=== PATIENT | female | born 1940 | race Caucasian/White ===

== ENCOUNTER → 2016-11-26 | Outpatient (CLI) | payer MEDICARE ==
[2016-11-26 13:06] LABS: HEMATOCRIT 45.2 % (34.6-47.8); HEMOGLOBIN 14.6 g/dL (11.7-16.4); WHITE BLOOD COUNT 10.1 x10^3/uL (3.4-10)
[2016-11-26 13:42] LABS: ASPARTATE AMINO TRANSFERASE 18 U/L (15-37); BLOOD UREA NITROGEN 15 mg/dL (7-18)
== END | disposition home or self-care (01) ==
LOC: LAB 10:03
PROVIDERS: ATTEND Internal Medicine Cardiovascular Disease
DX: E78.2 Mixed hyperlipidemia (principal); I48.0 Paroxysmal atrial fibrillation
CPT/HCPCS: 36415; 80053; 80061; 84436; 84443; 84481; 85025

== ENCOUNTER → 2016-12-04 | Outpatient (CLI) | payer MEDICARE | END | disposition home or self-care (01) | LOC: CFH 10:12 | PROVIDERS: ATTEND Internal Medicine Cardiovascular Disease | DX: I51.7 Cardiomegaly (principal); E78.2 Mixed hyperlipidemia; I48.0 Paroxysmal atrial fibrillation; I10 Essential (primary) hypertension; Z95.2 Presence of prosthetic heart valve | CPT/HCPCS: 71020; 93306 ==

== ENCOUNTER → 2017-03-24 | Outpatient (CLI) | payer MEDICARE ==
[2017-03-24 13:19] LABS: HEMATOCRIT 40.7 % (34.6-47.8); HEMOGLOBIN 13.6 g/dL (11.7-16.4); WHITE BLOOD COUNT 12.6 x10^3/uL (3.4-10)
[2017-03-24 14:08] LABS: BLOOD UREA NITROGEN 13 mg/dL (7-18)
[2017-03-24 14:19] LABS: ASPARTATE AMINO TRANSFERASE 17 U/L (15-37)
== END | disposition home or self-care (01) ==
LOC: CFH 11:36
PROVIDERS: ATTEND Internal Medicine Cardiovascular Disease
DX: I10 Essential (primary) hypertension (principal); I25.10 Atherosclerotic heart disease of native coronary artery without angina pectoris; E78.2 Mixed hyperlipidemia; I48.0 Paroxysmal atrial fibrillation; I35.9 Nonrheumatic aortic valve disorder, unspecified; Z95.2 Presence of prosthetic heart valve
CPT/HCPCS: 36415; 71020; 80053; 80061; 84436; 84443; 84481; 85025

== ENCOUNTER 2018-02-23 17:01 | Inpatient (IN) | payer MEDICARE ==
[~2018-02-23] VITALS: Ht 160 cm; Wt 67.9 kg
[2018-02-23] VITALS (9 sets, daily range): BP systolic 106–166; BP diastolic 37–71
[2018-02-23] MEDS ORDERED: SODIUM CHLORIDE 0.9% 1,000ML IVBOLUS ONE (17:30)
[2018-02-23] MEDS ORDERED: SODIUM CHLORIDE FLUSH 10ML SYR IVF ONE (17:30)
[2018-02-23] MEDS ORDERED: PANTOPRAZOLE 80 MG in SODIUM CHLORIDE 0.9% 50 ML IVPB ONE (17:47)
[2018-02-23] MEDS: PANTOPRAZOLE 80 MG in SODIUM CHLORIDE 0.9% 100 ML IV SCH ×4 (18:17→23:38)
[2018-02-23 18:27] LABS: INTERNATIONAL NORMALIZED RATIO 1.09 (0.93-1.1); PROTHROMBIN TIME 11.3 Seconds (9.6-11.5)
[2018-02-23 18:35] LABS: TROPONIN I < 0.015 ng/mL (0.000-0.045)
[2018-02-23] MEDS ORDERED: APIX5TAB PO (19:26)
[2018-02-23] MEDS ORDERED: PRED20TA PO (19:26)
[2018-02-23] MEDS ORDERED: SODIUM CHLORIDE 0.9% 1,000 ML IV SCH (19:38)
[2018-02-23] MEDS ORDERED: ONDANSETRON 2MG/ML, 2ML IVPush PRN (20:00)
[2018-02-23] MEDS ORDERED: POLYETHYLENE GLYCOL 17 GM PACKET PO PRN (20:00)
[2018-02-23] MEDS: PREDNISONE MC SCH (20:30)
[2018-02-23] MEDS: ALBUTEROL SULFATE 2.5 MG/3 ML HHN SCH (20:30)
[2018-02-23] MEDS: BUDESONIDE 0.5 MG/2 ML INHA NPPB SCH (20:30)
[2018-02-23] MEDS ORDERED: ALBUTEROL SULFATE 2.5 MG/3 ML NPPB PRN (21:00)
[2018-02-23] MEDS ORDERED: BUDESONIDE 0.5 MG/2 ML INHA NPPB SCH (21:00)
[2018-02-24 01:45] VITALS: BP 112/62
[2018-02-24 01:54] VITALS: BP 122/69
[2018-02-24] MEDS: ALBUTEROL SULFATE 2.5 MG/3 ML HHN SCH ×2 (02:30→10:07)
[2018-02-24] MEDS ORDERED: PRED10TA PO (04:04)
[2018-02-24] MEDS ORDERED: PRED5TAB PO (04:04)
[2018-02-24] MEDS: PREDNISONE MC SCH ×3 (04:30→20:30)
[2018-02-24 05:40] LABS: BASOPHILS # (AUTO) 0.03 x10^3/uL (0-0.1); BASOPHILS % (AUTO) 0 % (0-1); EOSINOPHILS # (AUTO) 0.02 x10^3/uL (0-0.4); EOSINOPHILS % (AUTO) 0 % (1-7); LYMPHOCYTES # (AUTO) 1.09 x10^3/uL (1-3.4); LYMPHOCYTES % (AUTO) 9 % (22-44); MD NO; MEAN CORPUSCULAR HEMOGLOBIN 30.5 pg (27.0-34.8); MEAN CORPUSCULAR HGB CONC 32.9 g/dL (32.4-35.8); MEAN CORPUSCULAR VOLUME 92.8 fL (80-100); MEAN PLATELET VOLUME 7.5 fL (7.4-10.4); MONOCYTES # (AUTO) 0.86 x10^3/uL (0.2-0.8); MONOCYTES % (AUTO) 7 % (2-9); NEUTROPHILS % (AUTO) 83 % (42-75); PLATELET COUNT 282 x10^3/uL (130-400); RED BLOOD COUNT 2.78 x10^6/uL (3.82-5.3); RED CELL DISTRIBUTION WIDTH 16.5 % (9.6-15.2)
[2018-02-24 05:48] LABS: ANION GAP 11 mmol/L (5-15); CALCIUM 7.7 mg/dL (8.5-10.1); CHLORIDE 103 mmol/L (98-107); CREATININE 1.24 mg/dL (0.55-1.02)
[2018-02-24] MEDS ORDERED: ALBUTEROL SULFATE 2.5 MG/3 ML NPPB SCH (07:00)
[2018-02-24 08:00] VITALS: BP 130/72
[2018-02-24] MEDS ORDERED: POTASSIUM CHLORIDE 40 MEQ in SODIUM CHLORIDE 0.9% 500 ML IV ONE (08:00)
[2018-02-24] MEDS: BUDESONIDE 0.5 MG/2 ML INHA NPPB SCH ×2 (08:30→20:30)
[2018-02-24] MEDS: PANTOPRAZOLE 80 MG in SODIUM CHLORIDE 0.9% 100 ML IV SCH ×2 (10:40→21:22)
[2018-02-24] MEDS ORDERED: MIDAZOLAM 1 MG/ML, 2ML ONE (13:50)
[2018-02-24] MEDS ORDERED: FENTANYL PF 100 MCG/2ML ONE (13:50)
[2018-02-24 14:00] VITALS: BP 164/69
[2018-02-24] MEDS ORDERED: IPRATROPIUM 0.5 MG/2.5 ML INHA ONE (17:28)
[2018-02-24] MEDS ORDERED: ALBUTEROL SULFATE 2.5 MG/3 ML HHN PRN (18:00)
[2018-02-24] MEDS: IPRATROPIUM 0.5 MG/2.5 ML INHA HHN SCH (18:00)
[2018-02-24 19:36] VITALS: BP 142/69
[2018-02-25 03:09] VITALS: BP_SYST 115; BP_SYST 137; BP_DIAS 62; BP_DIAS 74
[2018-02-25] MEDS: PREDNISONE MC SCH ×3 (04:30→20:30)
[2018-02-25 05:28] LABS: ALBUMIN 2.6 g/dL (3.4-5.0); ANION GAP 6 mmol/L (5-15); CALCIUM 7.7 mg/dL (8.5-10.1); CHLORIDE 106 mmol/L (98-107); CREATININE 1.04 mg/dL (0.55-1.02)
[2018-02-25 05:44] LABS: MEAN CORPUSCULAR HEMOGLOBIN 30.2 pg (27.0-34.8); MEAN CORPUSCULAR HGB CONC 32.5 g/dL (32.4-35.8); MEAN CORPUSCULAR VOLUME 92.8 fL (80-100); MEAN PLATELET VOLUME 7.8 fL (7.4-10.4); PLATELET COUNT 248 x10^3/uL (130-400); RED BLOOD COUNT 2.44 x10^6/uL (3.82-5.3); RED CELL DISTRIBUTION WIDTH 16.6 % (9.6-15.2)
[2018-02-25] MEDS: IPRATROPIUM 0.5 MG/2.5 ML INHA HHN SCH ×4 (06:00→20:15)
[2018-02-25 06:31] LABS: BASOPHILS # (AUTO) 0.01 x10^3/uL (0-0.1); BASOPHILS % (AUTO) 0 % (0-1); EOSINOPHILS # (AUTO) 0.03 x10^3/uL (0-0.4); EOSINOPHILS % (AUTO) 0 % (1-7); LYMPHOCYTES # (AUTO) 0.61 x10^3/uL (1-3.4); LYMPHOCYTES % (AUTO) 5 % (22-44); MD SCAN; MONOCYTES # (AUTO) 0.73 x10^3/uL (0.2-0.8); MONOCYTES % (AUTO) 6 % (2-9); NEUTROPHILS % (AUTO) 88 % (42-75)
[2018-02-25] MEDS: BUDESONIDE 0.5 MG/2 ML INHA NPPB SCH ×2 (07:15→20:15)
[2018-02-25] MEDS: PANTOPRAZOLE 80 MG in SODIUM CHLORIDE 0.9% 100 ML IV SCH (07:15)
[2018-02-25 07:39] VITALS: BP 134/65
[2018-02-25] MEDS: PANTOPROZOLE 40MG TABLET PO SCH ×2 (08:08→21:11)
[2018-02-25] MEDS: AMIODARONE 200 MG TABLET PO SCH (10:43)
[2018-02-25 11:31] LABS: CHOL/HDL RATIO 2.6; LDL/HDL RATIO 1.1 (0.5-3.0)
[2018-02-25 12:54] VITALS: BP 130/55
[2018-02-25] MEDS: MOVIPREP POWDER 1 PREP KIT PO SCH (18:04)
[2018-02-25 19:57] VITALS: BP 175/68
[2018-02-26] MEDS: IPRATROPIUM 0.5 MG/2.5 ML INHA HHN SCH ×3 (01:38→11:40)
[2018-02-26] MEDS: MOVIPREP POWDER 1 PREP KIT PO SCH (02:31)
[2018-02-26 02:33] VITALS: BP 167/71
[2018-02-26] MEDS: PREDNISONE MC SCH ×3 (04:30→20:22)
[2018-02-26 07:28] VITALS: BP 152/71
[2018-02-26] MEDS ORDERED: PROPOFOL 10 MG/ML, 20ML ONE (08:36)
[2018-02-26] MEDS ORDERED: MEPERIDINE/PF 25MG/0.5ML IVPush PRN (10:00)
[2018-02-26] MEDS: BUDESONIDE 0.5 MG/2 ML INHA NPPB SCH (10:00)
[2018-02-26] MEDS ORDERED: ONDANSETRON 2MG/ML, 2ML IVPush PRN (10:00)
[2018-02-26] MEDS ORDERED: OXYcodone 5 MG/5 ML ORAL.SOL UDC PO PRN (10:00)
[2018-02-26] MEDS ORDERED: HYDROmorphone 1 MG/ML, 1ML IV PRN (10:00)
[2018-02-26] MEDS ORDERED: LABETALOL 5MG/ML, 20ML IV PRN (10:00)
[2018-02-26] MEDS ORDERED: FENTANYL PF 100 MCG/2ML IV PRN (10:00)
[2018-02-26] MEDS ORDERED: MIDAZOLAM 1 MG/ML, 2ML IV PRN (10:00)
[2018-02-26] MEDS: AMIODARONE 200 MG TABLET PO SCH (10:16)
[2018-02-26] MEDS: PANTOPROZOLE 40MG TABLET PO SCH (10:16)
[2018-02-26] MEDS ORDERED: AMIO100T4 PO (11:51)
[2018-02-26] MEDS ORDERED: amlodipine PO (11:56)
[2018-02-26] MEDS ORDERED: LEVO50TA PO (11:56)
[2018-02-26] MEDS ORDERED: OMEP-110 PO (11:56)
[2018-02-26] MEDS ORDERED: ATOR40TA78 PO (11:56)
[2018-02-26] MEDS ORDERED: TORS20TA2 PO (11:56)
[2018-02-26] MEDS: TORSEMIDE 20 MG TABLET PO SCH (12:08)
[2018-02-26] MEDS: ACETAMINOPHEN 325 MG TABLET PO PRN (12:08)
[2018-02-26] MEDS: AMLODIPINE 5 MG TABLET PO SCH ×2 (12:08→20:21)
[2018-02-26] MEDS ORDERED: FUROSEMIDE 20 MG/2 ML IV ONE (13:30)
[2018-02-26 14:12] VITALS: BP 149/73
[2018-02-26 19:08] VITALS: BP 135/66
[2018-02-26] MEDS: ALBUTEROL SULFATE 2.5 MG/3 ML NPPB SCH (20:15)
[2018-02-26] MEDS: ATORVASTATIN 40 MG TABLET PO SCH (20:20)
[2018-02-27 00:28] VITALS: BP 105/63
[2018-02-27 05:11] LABS: BASOPHILS # (AUTO) 0.01 x10^3/uL (0-0.1); BASOPHILS % (AUTO) 0 % (0-1); EOSINOPHILS # (AUTO) 0.01 x10^3/uL (0-0.4); EOSINOPHILS % (AUTO) 0 % (1-7); LYMPHOCYTES # (AUTO) 0.88 x10^3/uL (1-3.4); LYMPHOCYTES % (AUTO) 9 % (22-44); MD NO; MEAN CORPUSCULAR HEMOGLOBIN 29.9 pg (27.0-34.8); MEAN CORPUSCULAR HGB CONC 32.4 g/dL (32.4-35.8); MEAN CORPUSCULAR VOLUME 92.2 fL (80-100); MEAN PLATELET VOLUME 7.6 fL (7.4-10.4); MONOCYTES # (AUTO) 0.68 x10^3/uL (0.2-0.8); MONOCYTES % (AUTO) 7 % (2-9); NEUTROPHILS # (AUTO) 8.73 x10^3/uL (1.8-6.8); NEUTROPHILS % (AUTO) 85 % (42-75); PLATELET COUNT 254 x10^3/uL (130-400); RED BLOOD COUNT 2.56 x10^6/uL (3.82-5.3); RED CELL DISTRIBUTION WIDTH 16.4 % (9.6-15.2)
[2018-02-27 05:19] LABS: ANION GAP 7 mmol/L (5-15); CALCIUM 7.9 mg/dL (8.5-10.1); CHLORIDE 102 mmol/L (98-107); CREATININE 1.21 mg/dL (0.55-1.02)
[2018-02-27] MEDS: OMEPRAZOLE 20 MG CAPSULE.DR PO SCH (05:58)
[2018-02-27] MEDS: LEVOTHYROXINE 50 MCG TABLET PO SCH (05:58)
[2018-02-27] MEDS: ACETAMINOPHEN 325 MG TABLET PO PRN ×2 (06:07→21:20)
[2018-02-27] MEDS: PREDNISONE MC SCH (07:37)
[2018-02-27 07:38] VITALS: BP 103/60
[2018-02-27] MEDS: TORSEMIDE 20 MG TABLET PO SCH ×2 (08:00→10:09)
[2018-02-27] MEDS: AMIODARONE 200 MG TABLET PO SCH (08:00)
[2018-02-27] MEDS: AMLODIPINE 5 MG TABLET PO SCH ×2 (08:00→21:20)
[2018-02-27] MEDS: ALBUTEROL SULFATE 2.5 MG/3 ML NPPB SCH ×2 (09:00→20:40)
[2018-02-27] MEDS ORDERED: OMNIPAQUE 350 MG/ML, 100ML BOTTLE ONE (10:42)
[2018-02-27] MEDS ORDERED: FERROUS GLUCONATE 324 MG TABLET PO SCH (12:00)
[2018-02-27 13:30] VITALS: BP 144/68
[2018-02-27] MEDS ORDERED: POTASSIUM CHLORIDE 10 MEQ TABLET.ER PO SCH (15:30)
[2018-02-27] MEDS: GUAIFENESIN 200 MG TABLET PO SCH ×2 (16:12→21:20)
[2018-02-27] MEDS: IRON SUCROSE COMPLEX 100MG/5ML IV SCH (17:51)
[2018-02-27 18:47] VITALS: BP 152/61
[2018-02-27] MEDS: DOXYCYCLINE 100MG TABLET PO SCH (21:20)
[2018-02-27] MEDS: ATORVASTATIN 40 MG TABLET PO SCH (21:20)
[2018-02-28 01:17] VITALS: BP 122/68
[2018-02-28] MEDS: LEVOTHYROXINE 50 MCG TABLET PO SCH (05:28)
[2018-02-28] MEDS: OMEPRAZOLE 20 MG CAPSULE.DR PO SCH (05:28)
[2018-02-28] MEDS: GUAIFENESIN 200 MG TABLET PO SCH ×2 (05:28→12:09)
[2018-02-28 05:40] LABS: BASOPHILS # (AUTO) 0.01 x10^3/uL (0-0.1); BASOPHILS % (AUTO) 0 % (0-1); EOSINOPHILS # (AUTO) 0.11 x10^3/uL (0-0.4); EOSINOPHILS % (AUTO) 1 % (1-7); LYMPHOCYTES # (AUTO) 1.06 x10^3/uL (1-3.4); LYMPHOCYTES % (AUTO) 12 % (22-44); MD NO; MEAN CORPUSCULAR HEMOGLOBIN 30.4 pg (27.0-34.8); MEAN CORPUSCULAR VOLUME 92.1 fL (80-100); MEAN PLATELET VOLUME 7.7 fL (7.4-10.4); MONOCYTES # (AUTO) 0.83 x10^3/uL (0.2-0.8); MONOCYTES % (AUTO) 9 % (2-9); NEUTROPHILS # (AUTO) 7.21 x10^3/uL (1.8-6.8); NEUTROPHILS % (AUTO) 78 % (42-75); PLATELET COUNT 279 x10^3/uL (130-400); RED BLOOD COUNT 2.69 x10^6/uL (3.82-5.3); RED CELL DISTRIBUTION WIDTH 16.4 % (9.6-15.2)
[2018-02-28 05:46] LABS: ANION GAP 8 mmol/L (5-15); CALCIUM 7.9 mg/dL (8.5-10.1); CHLORIDE 97 mmol/L (98-107)
[2018-02-28 05:48] LABS: CREATININE 1.43 mg/dL (0.55-1.02)
[2018-02-28 07:20] VITALS: BP 130/65
[2018-02-28] MEDS ORDERED: POTASSIUM CHLORIDE 10 MEQ TABLET.ER PO SCH (08:00)
[2018-02-28] MEDS ORDERED: POTASSIUM CHLORIDE 20 MEQ TAB.ER.PRT PO SCH (08:00)
[2018-02-28] MEDS ORDERED: BUDESONIDE 0.5 MG/2 ML INHA INH SCH (09:00)
[2018-02-28] MEDS ORDERED: ALBUTEROL SULFATE 2.5 MG/3 ML NPPB SCH (09:00)
[2018-02-28] MEDS: DOXYCYCLINE 100MG TABLET PO SCH (09:01)
[2018-02-28] MEDS: TORSEMIDE 20 MG TABLET PO SCH (09:01)
[2018-02-28] MEDS: AMLODIPINE 5 MG TABLET PO SCH (09:02)
[2018-02-28] MEDS: IRON SUCROSE COMPLEX 100MG/5ML IV SCH (09:02)
[2018-02-28] MEDS: AMIODARONE 200 MG TABLET PO SCH (09:02)
[2018-02-28] MEDS ORDERED: POTA20TA6 PO (09:51)
[2018-02-28] MEDS ORDERED: GUAI200T3 PO (09:51)
[2018-02-28] MEDS ORDERED: DOXY100T10 PO (09:51)
[2018-02-28] MEDS ORDERED: OMEP-110 PO (09:51)
[2018-02-28] MEDS ORDERED: AMIO200T42 PO (09:51)
[2018-03-01] MEDS ORDERED: AMIODARONE 200 MG TABLET PO SCH (09:00)
== END 2018-02-28 12:15 | disposition home or self-care (01) | DRG 380 ==
LOC: ED 18:22 → EDIP 19:20 → SUATTDRO 19:37 → 4WST 20:16
PROVIDERS: ADMIT Hospitalist; ATTEND Hospitalist
PROC: 30233N1 Transfusion of Nonautologous Red Blood Cells into Peripheral Vein, Percutaneous Approach (ICD-10-PCS; principal; 2018-02-23)
PROC: 0DJ08ZZ Inspection of Upper Intestinal Tract, Via Natural or Artificial Opening Endoscopic (ICD-10-PCS; 2018-02-24)
PROC: 0DBL8ZX Excision of Transverse Colon, Via Natural or Artificial Opening Endoscopic, Diagnostic (ICD-10-PCS; 2018-02-26)
DX: K22.11 Ulcer of esophagus with bleeding (principal); I50.33 Acute on chronic diastolic (congestive) heart failure; D62 Acute posthemorrhagic anemia; J96.11 Chronic respiratory failure with hypoxia; I13.0 Hypertensive heart and chronic kidney disease with heart failure and stage 1 through stage 4 chronic kidney disease, or unspecified chronic kidney disease; K44.9 Diaphragmatic hernia without obstruction or gangrene; K64.1 Second degree hemorrhoids; K63.5 Polyp of colon; E03.9 Hypothyroidism, unspecified; E78.5 Hyperlipidemia, unspecified; K57.90 Diverticulosis of intestine, part unspecified, without perforation or abscess without bleeding; E87.6 Hypokalemia; F17.210 Nicotine dependence, cigarettes, uncomplicated; I27.20 Pulmonary hypertension, unspecified; Z99.81 Dependence on supplemental oxygen; I35.0 Nonrheumatic aortic (valve) stenosis; I34.0 Nonrheumatic mitral (valve) insufficiency; I44.7 Left bundle-branch block, unspecified; I48.0 Paroxysmal atrial fibrillation; J44.9 Chronic obstructive pulmonary disease, unspecified; K21.0 Gastro-esophageal reflux disease with esophagitis; N18.3 Chronic kidney disease, stage 3 (moderate); Z79.01 Long term (current) use of anticoagulants; Z79.52 Long term (current) use of systemic steroids; Z90.710 Acquired absence of both cervix and uterus; Z95.1 Presence of aortocoronary bypass graft; Z95.2 Presence of prosthetic heart valve
CPT/HCPCS: 0399T; 36415; 36430; 71045; 71275; 80048; 80061; 82040; 82728; 83540; 83550; 83735; 84100; 84466; 84484; 85014; 85018; 85025; 85610; 85730; 86850; 86900; 86923; 88305; 93005; 93306; 94640; 96374; 99285; G0378; J1756; J2250; J2704; J3010; J3480; J7613; J7626; J7644; Q9967; A4648; C9113; J1940; J7030; J7040; J7512; P9016

== ENCOUNTER → 2018-02-23 | Outpatient (CLI) | payer MEDICARE ==
[~2018-02-23] MED LIST: AMIO100T4 PO; AMIO200T42 PO; APIX5TAB PO; ATOR40TA78 PO; DOXY100T10 PO; GUAI200T3 PO; LEVO50TA PO; OMEP-110 PO; POTA20TA6 PO; PRED10TA PO; PRED20TA PO; PRED5TAB PO; TORS20TA2 PO; amlodipine PO
[2018-02-23 16:00] LABS: BASOPHILS % (AUTO) 0 % (0-1); EOSINOPHILS # (AUTO) 0.03 x10^3/uL (0-0.4); EOSINOPHILS % (AUTO) 0 % (1-7); LYMPHOCYTES # (AUTO) 0.38 x10^3/uL (1-3.4); LYMPHOCYTES % (AUTO) 4 % (22-44); MEAN CORPUSCULAR HEMOGLOBIN 29.1 pg (27.0-34.8); MEAN CORPUSCULAR HGB CONC 31.7 g/dL (32.4-35.8); MEAN CORPUSCULAR VOLUME 91.8 fL (80-100); MEAN PLATELET VOLUME 7.8 fL (7.4-10.4); MONOCYTES # (AUTO) 0.23 x10^3/uL (0.2-0.8); MONOCYTES % (AUTO) 2 % (2-9); NEUTROPHILS # (AUTO) 8.93 x10^3/uL (1.8-6.8); NEUTROPHILS % (AUTO) 93 % (42-75); PLATELET COUNT 354 x10^3/uL (130-400); RED BLOOD COUNT 2.07 x10^6/uL (3.82-5.3); RED CELL DISTRIBUTION WIDTH 15.7 % (9.6-15.2)
[2018-02-23 16:01] LABS: ANION GAP 9 mmol/L (5-15); CALCIUM 8.1 mg/dL (8.5-10.1); CHLORIDE 103 mmol/L (98-107)
[2018-02-23 16:12] LABS: ALANINE AMINOTRANSFERASE 19 U/L (12-78); ALKALINE PHOSPHATASE 68 U/L (45-117); BILIRUBIN,TOTAL 0.2 mg/dL (0.2-1.0); CREATININE 1.57 mg/dL (0.55-1.02); T4 (THYROXINE) 11.1 mcg/dL (4.8-13.9); TOTAL PROTEIN 5.9 g/dL (6.4-8.2)
[2018-02-23 16:17] LABS: MD MORPH REVIEW ONLY
[2018-02-23 16:19] LABS: HYPOCHROMIA 1+; MICROCYTOSIS 1+; POLYCHROMASIA 1+
[2018-02-23 16:20] LABS: <PLATELET ESTIMATE> ADEQUATE; <PLT MORPHOLOGY> NORMAL PLT MORPH
== END | disposition home or self-care (01) ==
LOC: CFH 15:10
PROVIDERS: ATTEND Internal Medicine Cardiovascular Disease
DX: I48.0 Paroxysmal atrial fibrillation (principal)
CPT/HCPCS: 36415; 80053; 84436; 84443; 84481; 85025

== ENCOUNTER → 2018-07-14 | Outpatient (CLI) | payer MEDICARE ==
[2018-07-14 12:57] LABS: MEAN CORPUSCULAR HEMOGLOBIN 28.7 pg (27.0-34.8); MEAN CORPUSCULAR HGB CONC 31.7 g/dL (32.4-35.8); MEAN CORPUSCULAR VOLUME 90.4 fL (80-100); MEAN PLATELET VOLUME 8.2 fL (7.4-10.4); PLATELET COUNT 265 x10^3/uL (130-400); RED BLOOD COUNT 4.31 x10^6/uL (3.82-5.3); RED CELL DISTRIBUTION WIDTH 17.8 % (9.6-15.2)
[2018-07-14 13:15] LABS: CALCIUM 8.7 mg/dL (8.5-10.1); CHLORIDE 105 mmol/L (98-107)
[2018-07-14 13:21] LABS: ALANINE AMINOTRANSFERASE 21 U/L (12-78); ALBUMIN 3.6 g/dL (3.4-5.0); ALKALINE PHOSPHATASE 104 U/L (45-117); ANION GAP 6 mmol/L (5-15); BILIRUBIN,TOTAL 0.8 mg/dL (0.2-1.0); CHOLESTEROL, TOTAL 224 mg/dL (140-239); CREATININE 1.14 mg/dL (0.55-1.02); HDL CHOLESTEROL (DIRECT) 108 mg/dL (40-60); TOTAL PROTEIN 6.7 g/dL (6.4-8.2); TRIGLYCERIDES 142 mg/dL (50-200); VLDL CHOLESTEROL 28 mg/dL (0-25)
[2018-07-14 13:22] LABS: CHOL/HDL RATIO 2.1; HDL CHOL % 48 % (28-40); LDL CHOLESTEROL,CALCULATED 88 mg/dL (54-169); LDL/HDL RATIO 0.8 (0.5-3.0)
[2018-07-14 14:07] LABS: BASOPHILS % (AUTO) 0 % (0-1); EOSINOPHILS # (AUTO) 0.04 x10^3/uL (0-0.4); EOSINOPHILS % (AUTO) 0 % (1-7); LYMPHOCYTES % (AUTO) 4 % (22-44); MD SCAN; MONOCYTES # (AUTO) 0.16 x10^3/uL (0.2-0.8); MONOCYTES % (AUTO) 1 % (2-9); NEUTROPHILS # (AUTO) 12.06 x10^3/uL (1.8-6.8); NEUTROPHILS % (AUTO) 95 % (42-75)
== END | disposition home or self-care (01) ==
LOC: CFH 08:17
PROVIDERS: ATTEND Internal Medicine Cardiovascular Disease
DX: I08.1 Rheumatic disorders of both mitral and tricuspid valves (principal); I13.0 Hypertensive heart and chronic kidney disease with heart failure and stage 1 through stage 4 chronic kidney disease, or unspecified chronic kidney disease; I50.9 Heart failure, unspecified; N18.9 Chronic kidney disease, unspecified; I48.0 Paroxysmal atrial fibrillation; E78.2 Mixed hyperlipidemia; J44.9 Chronic obstructive pulmonary disease, unspecified; Z87.891 Personal history of nicotine dependence
CPT/HCPCS: 36415; 80053; 80061; 85025; 93306

== ENCOUNTER → 2018-10-20 | Outpatient (CLI) | payer MEDICARE | END | disposition home or self-care (01) | LOC: CFH 11:47 | PROVIDERS: ATTEND Internal Medicine Cardiovascular Disease | DX: I12.9 Hypertensive chronic kidney disease with stage 1 through stage 4 chronic kidney disease, or unspecified chronic kidney disease (principal); N18.9 Chronic kidney disease, unspecified; I48.0 Paroxysmal atrial fibrillation; I35.9 Nonrheumatic aortic valve disorder, unspecified; I25.10 Atherosclerotic heart disease of native coronary artery without angina pectoris; E78.2 Mixed hyperlipidemia; J98.4 Other disorders of lung | CPT/HCPCS: 71046 ==

== ENCOUNTER 2019-07-19 15:44 | Inpatient (IN) | payer MEDICARE ==
[~2019-07-19] VITALS: Ht 160 cm; Wt 78.8 kg
[2019-07-19] MEDS ORDERED: SODIUM CHLORIDE FLUSH 10ML SYR IVF ONE (16:30)
[2019-07-19] MEDS ORDERED: methylPREDNISolone SOD SUCC 125 MG/2 ML IV ONE (16:30)
[2019-07-19 16:57] LABS: MEAN CORPUSCULAR HEMOGLOBIN 28.2 pg (27.0-34.8); MEAN CORPUSCULAR HGB CONC 31.4 g/dL (32.4-35.8); MEAN CORPUSCULAR VOLUME 89.9 fL (80-100); MEAN PLATELET VOLUME 7.2 fL (7.4-10.4); PLATELET COUNT 450 x10^3/uL (130-400); RED BLOOD COUNT 2.91 x10^6/uL (3.82-5.3); RED CELL DISTRIBUTION WIDTH 17.3 % (9.6-15.2)
--- NOTE | 2019-07-19 17:05 | NUR ---
PT UPRIGHT ON GURNEY AWAKE & MORE COMFORTABLE, RESPONDS APPROP TO STAFF, IMPROVED WOB/NAD AT REST WITH SUPPL O2 IN PLACE, COMFORT MEASURES PROIVDED, CALL LIGHT WITHIN REACH.
[2019-07-19 17:06] LABS: ALBUMIN 3.2 g/dL (3.4-5.0); ANION GAP 7 mmol/L (5-15); CALCIUM 8.4 mg/dL (8.5-10.1); CHLORIDE 103 mmol/L (98-107); CREATININE 1.63 mg/dL (0.55-1.02)
[2019-07-19 17:24] LABS: MD YES
[2019-07-19 17:26] LABS: LYMPHS% (MANUAL) 2 % (22-44); MONOS#(MANUAL) 0.45 x10^3/uL (0.3-2.7); MONOS% (MANUAL) 3 % (2-9); SEG#(MANUAL) 14.25 x10^3/uL (1.8-6.8); SEGS% (MANUAL) 95 % (42-75)
[2019-07-19 17:29] LABS: <PLATELET ESTIMATE> INCREASED; HYPOCHROMIA 1+; MICROCYTOSIS 1+; POLYCHROMASIA 1+; SMALL PLATELETS 1+
[2019-07-19] MEDS ORDERED: SODIUM CHLORIDE FLUSH 10ML SYR IVF PRN (18:00)
[2019-07-19] MEDS ORDERED: FUROSEMIDE 40 MG/4 ML IV ONE (18:30)
[2019-07-19] MEDS ORDERED: POLYETHYLENE GLYCOL 17 GM PACKET PO PRN (19:00)
[2019-07-19] MEDS ORDERED: ONDANSETRON ODT 4 MG PO PRN (19:00)
[2019-07-19] MEDS ORDERED: BISACODYL 10 MG SUPP PR PRN (19:00)
--- NOTE | 2019-07-19 19:03 | NUR ---
REPORT GIVEN TO ZOE
[2019-07-19] MEDS ORDERED: HEPARIN 5,000 UNITS/ML, 1ML ONE (19:23)
[2019-07-19] MEDS ORDERED: OMEPRAZOLE 20 MG CAPSULE.DR ONE (19:23)
[2019-07-19] MEDS ORDERED: methylPREDNISolone SOD SUCC 125 MG/2 ML ONE (19:23)
--- NOTE | 2019-07-19 19:34 | NUR ---
Patient states she feels better than when she arrived however she is still having difficulty breathing. Patient is on 2lpm O2 via NC. She uses home O2 at the same but 3lpm when walking.
[2019-07-19] MEDS ORDERED: FUROSEMIDE 40 MG/4 ML ONE (20:10)
[2019-07-19] MEDS: methylPREDNISolone SOD SUCC 125 MG/2 ML IVPush SCH (20:17)
[2019-07-19] MEDS: ATORVASTATIN 40 MG TABLET PO SCH (20:21)
[2019-07-19] MEDS: OMEPRAZOLE 20 MG CAPSULE.DR PO SCH (20:21)
[2019-07-19] MEDS: GUAIFENESIN 200 MG TABLET PO SCH (20:21)
[2019-07-19] MEDS: AMLODIPINE 5 MG TABLET PO SCH (20:22)
[2019-07-19] MEDS: HEPARIN 5,000 UNITS/ML, 1ML SQ SCH (20:24)
--- NOTE | 2019-07-19 20:45 | NUR ---
Patient continued to have increased work of breathing. Contacted physician for orders. RT to evaluate and start optiflow
[2019-07-19] MEDS: SODIUM CHLORIDE FLUSH 10ML SYR IVF SCH (21:00)
--- NOTE | 2019-07-19 21:02 | NUR ---
Ana Maria card in [facility] - 07/19/19 at 2125 by [email or web address] Please call patient's sister Michelle [phone]
[2019-07-19] MEDS ORDERED: ALBUTEROL/IPRATROPIUM 2.5MG/0.5MG, 3 ML NPPB PRN (22:00)
--- NOTE | 2019-07-19 22:21 | NUR ---
After optiflow, patient work of breathing decreased. Patient states she can breath much better.
[2019-07-20 00:16] LABS: MICROSCOPIC NOT IND
[2019-07-20 00:20] LABS: CULTURE INDICATED? NO
[2019-07-20] MEDS: methylPREDNISolone SOD SUCC 125 MG/2 ML IVPush SCH ×4 (01:30→19:00)
[2019-07-20] MEDS: ALBUTEROL/IPRATROPIUM 2.5MG/0.5MG, 3 ML NPPB SCH ×3 (03:00→15:00)
[2019-07-20] MEDS ORDERED: methylPREDNISolone SOD SUCC 125 MG/2 ML ONE ×2 (03:33→03:51)
[2019-07-20] MEDS ORDERED: ALBUTEROL/IPRATROPIUM 2.5MG/0.5MG, 3 ML ONE ×4 (03:34→21:25)
[2019-07-20] MEDS ORDERED: HEPARIN 5,000 UNITS/ML, 1ML ONE ×3 (03:53→21:25)
[2019-07-20] MEDS: HEPARIN 5,000 UNITS/ML, 1ML SQ SCH ×3 (04:19→21:45)
[2019-07-20 04:54] LABS: ANION GAP 7 mmol/L (5-15); CALCIUM 8.7 mg/dL (8.5-10.1); CHLORIDE 98 mmol/L (98-107); MEAN CORPUSCULAR HEMOGLOBIN 28.6 pg (27.0-34.8); MEAN CORPUSCULAR HGB CONC 32.1 g/dL (32.4-35.8); MEAN CORPUSCULAR VOLUME 89.2 fL (80-100); MEAN PLATELET VOLUME 7.3 fL (7.4-10.4); PLATELET COUNT 388 x10^3/uL (130-400); RED BLOOD COUNT 2.96 x10^6/uL (3.82-5.3); RED CELL DISTRIBUTION WIDTH 17.1 % (9.6-15.2)
[2019-07-20 04:56] LABS: CREATININE 1.45 mg/dL (0.55-1.02)
[2019-07-20 05:44] LABS: BASOPHILS % (AUTO) 0 % (0-1); EOSINOPHILS # (AUTO) 0.08 x10^3/uL (0-0.4); EOSINOPHILS % (AUTO) 1 % (1-7); LYMPHOCYTES # (AUTO) 0.37 x10^3/uL (1-3.4); LYMPHOCYTES % (AUTO) 4 % (22-44); MD SCAN; MONOCYTES # (AUTO) 0.01 x10^3/uL (0.2-0.8); MONOCYTES % (AUTO) 0 % (2-9); NEUTROPHILS # (AUTO) 8.66 x10^3/uL (1.8-6.8); NEUTROPHILS % (AUTO) 95 % (42-75)
[2019-07-20] MEDS: LEVOTHYROXINE 50 MCG TABLET PO SCH (05:53)
[2019-07-20] MEDS: GUAIFENESIN 200 MG TABLET PO SCH ×4 (05:53→21:45)
[2019-07-20] MEDS ORDERED: FUROSEMIDE 20 MG/2 ML IV SCH (07:30)
[2019-07-20] MEDS ORDERED: POTASSIUM CHLORIDE 20 MEQ TAB.ER.PRT ONE (08:02)
[2019-07-20] MEDS ORDERED: FUROSEMIDE 20 MG/2 ML ONE (08:02)
[2019-07-20] MEDS: POTASSIUM CHLORIDE 20 MEQ TAB.ER.PRT PO SCH (08:14)
--- NOTE | 2019-07-20 08:25 | NUR ---
pt resting in gurney, NAD, eyes open, conversing iwth RN, denies additional needs, call light within reach, medicated per hospitalist order, see MAR for details, waiting for admit bed. WCTM.
[2019-07-20] MEDS ORDERED: NEOSPORIN OINT. PKT 1 PACKET ONE ×2 (08:42→09:32)
[2019-07-20] MEDS ORDERED: DOCUSATE 100 MG CAPSULE ONE (08:53)
[2019-07-20] MEDS ORDERED: BUDESONIDE 0.5 MG/2 ML INHA NPPB SCH (09:00)
[2019-07-20] MEDS: SODIUM CHLORIDE FLUSH 10ML SYR IVF SCH ×2 (09:00→21:00)
[2019-07-20] MEDS: SENNA/DOCUSATE TABLET PO SCH (09:00)
--- NOTE | 2019-07-20 09:07 | NUR ---
PHARMACY REQUEST SLIP SENT TO PHARMACY FOR AM MEDS.
[2019-07-20] MEDS: AMIODARONE 200 MG TABLET PO SCH (09:29)
[2019-07-20] MEDS: AMLODIPINE 5 MG TABLET PO SCH ×2 (09:30→21:45)
[2019-07-20] MEDS: OMEPRAZOLE 20 MG CAPSULE.DR PO SCH ×2 (09:30→21:44)
--- NOTE | 2019-07-20 09:31 | NUR ---
VS UPDATED AND STABLE. PT MEDICATED PER JUN EXCEPT FOR STOOL SOFTENER WHICH DIDN'T COME FROM PHARMACY. WILL REORDER.
--- NOTE | 2019-07-20 12:41 | NUR ---
LUNCH TRAY PROVIDED. PT ASSISTED TO BSC AND THEN BTB. NO OTHER NEEDS AT THIS TIME.
--- NOTE | 2019-07-20 16:03 | NUR ---
PT RESTING COMFORTABLY. MEDS PER JUN. 3P'S ADDRESSED.
[2019-07-20] MEDS: FUROSEMIDE 40 MG/4 ML IV SCH (17:00)
[2019-07-20] MEDS ORDERED: FUROSEMIDE 40 MG/4 ML ONE (20:08)
[2019-07-20 21:41] VITALS: BP 153/101
[2019-07-20] MEDS: ALBUTEROL-IPRATROPIUM MDI INH INH PRN (21:45)
[2019-07-20] MEDS: ATORVASTATIN 40 MG TABLET PO SCH (22:54)
[2019-07-21] MEDS: methylPREDNISolone SOD SUCC 125 MG/2 ML IVPush SCH (00:58)
[2019-07-21 01:00] VITALS: BP 133/90
[2019-07-21] MEDS: GUAIFENESIN 200 MG TABLET PO SCH ×4 (05:24→22:00)
[2019-07-21] MEDS: LEVOTHYROXINE 50 MCG TABLET PO SCH (05:24)
[2019-07-21] MEDS: HEPARIN 5,000 UNITS/ML, 1ML SQ SCH ×3 (05:24→22:00)
[2019-07-21] MEDS: FUROSEMIDE 40 MG/4 ML IV SCH ×2 (08:27→17:32)
[2019-07-21] MEDS: AMLODIPINE 5 MG TABLET PO SCH ×2 (08:27→22:00)
[2019-07-21] MEDS: OMEPRAZOLE 20 MG CAPSULE.DR PO SCH ×2 (08:27→22:00)
[2019-07-21] MEDS: AMIODARONE 200 MG TABLET PO SCH (08:27)
[2019-07-21] MEDS: POTASSIUM CHLORIDE 20 MEQ TAB.ER.PRT PO SCH (08:27)
[2019-07-21] MEDS: SODIUM CHLORIDE FLUSH 10ML SYR IVF SCH ×2 (08:28→22:00)
[2019-07-21 09:00] VITALS: BP 120/93
[2019-07-21 09:18] LABS: ANION GAP 6 mmol/L (5-15); CALCIUM 8.6 mg/dL (8.5-10.1); CHLORIDE 98 mmol/L (98-107)
[2019-07-21] MEDS: SENNA/DOCUSATE TABLET PO SCH (09:18)
[2019-07-21 09:19] LABS: MEAN CORPUSCULAR HEMOGLOBIN 28.2 pg (27.0-34.8); MEAN CORPUSCULAR HGB CONC 31.6 g/dL (32.4-35.8); MEAN CORPUSCULAR VOLUME 89.2 fL (80-100); MEAN PLATELET VOLUME 7.7 fL (7.4-10.4); PLATELET COUNT 358 x10^3/uL (130-400); RED BLOOD COUNT 2.76 x10^6/uL (3.82-5.3)
[2019-07-21 09:21] LABS: CREATININE 1.72 mg/dL (0.55-1.02)
[2019-07-21 09:38] LABS: BASOPHILS % (AUTO) 0 % (0-1); EOSINOPHILS % (AUTO) 0 % (1-7); LYMPHOCYTES # (AUTO) 0.26 x10^3/uL (1-3.4); LYMPHOCYTES % (AUTO) 2 % (22-44); MD SCAN; MONOCYTES # (AUTO) 0.33 x10^3/uL (0.2-0.8); MONOCYTES % (AUTO) 2 % (2-9); NEUTROPHILS # (AUTO) 14.08 x10^3/uL (1.8-6.8); NEUTROPHILS % (AUTO) 96 % (42-75)
[2019-07-21] MEDS: ALBUTEROL-IPRATROPIUM MDI INH INH PRN (13:05)
[2019-07-21 14:30] VITALS: BP 107/81
[2019-07-21 15:07] VITALS: BP 117/76
[2019-07-21] MEDS: ACETAMINOPHEN 325 MG TABLET PO PRN (15:18)
[2019-07-21 19:04] VITALS: BP 114/70
[2019-07-21 21:57] VITALS: BP 127/75
[2019-07-21] MEDS: ATORVASTATIN 40 MG TABLET PO SCH (22:00)
[2019-07-22 01:41] VITALS: BP 95/59
[2019-07-22 06:05] VITALS: BP 151/88
[2019-07-22] MEDS: LEVOTHYROXINE 50 MCG TABLET PO SCH (06:07)
[2019-07-22] MEDS: GUAIFENESIN 200 MG TABLET PO SCH ×4 (06:07→21:04)
[2019-07-22] MEDS: HEPARIN 5,000 UNITS/ML, 1ML SQ SCH ×3 (06:07→21:04)
[2019-07-22] MEDS: FUROSEMIDE 40 MG/4 ML IV SCH (06:07)
[2019-07-22 06:35] VITALS: BP 121/79
[2019-07-22] MEDS: POTASSIUM CHLORIDE 20 MEQ TAB.ER.PRT PO SCH (08:31)
[2019-07-22] MEDS: AMIODARONE 200 MG TABLET PO SCH (08:31)
[2019-07-22] MEDS: OMEPRAZOLE 20 MG CAPSULE.DR PO SCH ×2 (08:31→21:04)
[2019-07-22] MEDS: AMLODIPINE 5 MG TABLET PO SCH ×2 (08:31→21:04)
[2019-07-22] MEDS: SODIUM CHLORIDE FLUSH 10ML SYR IVF SCH ×2 (08:34→21:11)
[2019-07-22] MEDS: SENNA/DOCUSATE TABLET PO SCH (08:35)
[2019-07-22] MEDS ORDERED: FUROSEMIDE 40 MG/4 ML IV SCH (09:30)
[2019-07-22 12:41] VITALS: BP 121/74
[2019-07-22] MEDS: ALBUTEROL-IPRATROPIUM MDI INH INH SCH ×2 (15:30→21:06)
[2019-07-22 19:33] VITALS: BP 118/69
[2019-07-22] MEDS: ATORVASTATIN 40 MG TABLET PO SCH (21:04)
[2019-07-23 01:14] VITALS: BP 102/62
[2019-07-23] MEDS: ALBUTEROL-IPRATROPIUM MDI INH INH SCH ×2 (03:30→09:20)
[2019-07-23] MEDS: ACETAMINOPHEN 325 MG TABLET PO PRN (04:11)
[2019-07-23 05:30] LABS: BASOPHILS # (AUTO) 0.06 x10^3/uL (0-0.1); BASOPHILS % (AUTO) 1 % (0-1); EOSINOPHILS # (AUTO) 0.15 x10^3/uL (0-0.4); EOSINOPHILS % (AUTO) 1 % (1-7); LYMPHOCYTES # (AUTO) 0.91 x10^3/uL (1-3.4); LYMPHOCYTES % (AUTO) 7 % (22-44); MD NO; MEAN CORPUSCULAR HEMOGLOBIN 27.5 pg (27.0-34.8); MEAN CORPUSCULAR HGB CONC 31.1 g/dL (32.4-35.8); MEAN CORPUSCULAR VOLUME 88.5 fL (80-100); MONOCYTES # (AUTO) 0.54 x10^3/uL (0.2-0.8); MONOCYTES % (AUTO) 4 % (2-9); NEUTROPHILS # (AUTO) 10.77 x10^3/uL (1.8-6.8); NEUTROPHILS % (AUTO) 87 % (42-75); PLATELET COUNT 310 x10^3/uL (130-400); RED CELL DISTRIBUTION WIDTH 18.2 % (9.6-15.2)
[2019-07-23 05:37] LABS: ALANINE AMINOTRANSFERASE 20 U/L (12-78); ALBUMIN 2.8 g/dL (3.4-5.0); ANION GAP 7 mmol/L (5-15); CALCIUM 7.9 mg/dL (8.5-10.1); CHLORIDE 97 mmol/L (98-107); CREATININE 1.55 mg/dL (0.55-1.02)
[2019-07-23 05:39] LABS: ALKALINE PHOSPHATASE 80 U/L (45-117); BILIRUBIN,TOTAL 0.3 mg/dL (0.2-1.0); TOTAL PROTEIN 5.4 g/dL (6.4-8.2)
[2019-07-23] MEDS: LEVOTHYROXINE 50 MCG TABLET PO SCH (06:03)
[2019-07-23] MEDS: GUAIFENESIN 200 MG TABLET PO SCH ×2 (06:03→10:29)
[2019-07-23] MEDS: HEPARIN 5,000 UNITS/ML, 1ML SQ SCH (06:04)
[2019-07-23 06:34] VITALS: BP 113/66
[2019-07-23] MEDS ORDERED: ASPIRIN 81 MG TABLET CHEW PO SCH (09:00)
[2019-07-23] MEDS: OMEPRAZOLE 20 MG CAPSULE.DR PO SCH (09:17)
[2019-07-23] MEDS: AMIODARONE 200 MG TABLET PO SCH (09:17)
[2019-07-23] MEDS: AMLODIPINE 5 MG TABLET PO SCH (09:17)
[2019-07-23] MEDS: SENNA/DOCUSATE TABLET PO SCH (09:17)
[2019-07-23] MEDS: SODIUM CHLORIDE FLUSH 10ML SYR IVF SCH (09:21)
[2019-07-23] MEDS ORDERED: POTASSIUM CHLORIDE 20 MEQ TAB.ER.PRT PO SCH (10:00)
[2019-07-23] MEDS ORDERED: BUDE10.2 INH (11:40)
[2019-07-23] MEDS ORDERED: TIOT18CA INH (11:40)
[2019-07-23] MEDS ORDERED: PRED10TA PO (11:40)
[2019-07-23] MEDS ORDERED: ALBU90AE INH (11:42)
[2019-07-23 12:39] VITALS: BP 127/76
[2019-07-24] MEDS ORDERED: POTASSIUM CHLORIDE 20 MEQ TAB.ER.PRT PO SCH (08:00)
== END 2019-07-23 15:23 | disposition home or self-care (01) | DRG 291 ==
LOC: ED 16:31 → EDIP 17:41 → 3WST 07-21 00:35 → 5SO 07-21 15:12
PROVIDERS: ADMIT Internal Medicine; ATTEND Internal Medicine
DX: I13.0 Hypertensive heart and chronic kidney disease with heart failure and stage 1 through stage 4 chronic kidney disease, or unspecified chronic kidney disease (principal); I50.33 Acute on chronic diastolic (congestive) heart failure; N17.0 Acute kidney failure with tubular necrosis; J44.1 Chronic obstructive pulmonary disease with (acute) exacerbation; J96.10 Chronic respiratory failure, unspecified whether with hypoxia or hypercapnia; R65.10 Systemic inflammatory response syndrome (SIRS) of non-infectious origin without acute organ dysfunction; I48.20 Chronic atrial fibrillation, unspecified; D68.69 Other thrombophilia; Q21.1 Atrial septal defect; N18.3 Chronic kidney disease, stage 3 (moderate); E03.9 Hypothyroidism, unspecified; D64.9 Anemia, unspecified; E78.5 Hyperlipidemia, unspecified; I48.0 Paroxysmal atrial fibrillation; Z66 Do not resuscitate; Z78.9 Other specified health status; Z87.891 Personal history of nicotine dependence; Z90.710 Acquired absence of both cervix and uterus; Z95.2 Presence of prosthetic heart valve; Z99.81 Dependence on supplemental oxygen; Z20.818 Contact with and (suspected) exposure to other bacterial communicable diseases
CPT/HCPCS: 36415; 71045; 80048; 80053; 81003; 82040; 83605; 83880; 85025; 87040; 93005; 93306; 94640; 96374; 96375; 96376; G0378; J1644; J1940; J2930

== ENCOUNTER → 2019-07-19 | Outpatient (CLI) | payer MEDICARE ==
[~2019-07-19] MED LIST changes: -DOXY100T10 PO; +DOXY100T23 PO; -GUAI200T3 PO; +GUAI200T37 PO
[2019-07-19 15:48] LABS: ANION GAP 7 mmol/L (5-15); CALCIUM 8.6 mg/dL (8.5-10.1); CHLORIDE 103 mmol/L (98-107)
[2019-07-19 15:51] LABS: CREATININE 1.44 mg/dL (0.55-1.02)
== END | disposition home or self-care (01) ==
LOC: CFH 12:45
PROVIDERS: ATTEND Internal Medicine Cardiovascular Disease
DX: E78.2 Mixed hyperlipidemia (principal)
CPT/HCPCS: 36415; 80048

== ENCOUNTER → 2019-10-28 | Outpatient (CLI) | payer MEDICARE ==
[~2019-10-28] MED LIST changes: +ALBU90AE INH; +BUDE10.2 INH; +TIOT18CA INH
== END | disposition home or self-care (01) ==
LOC: CVU 13:23
PROVIDERS: ATTEND Physician Assistant Medical
DX: I08.8 Other rheumatic multiple valve diseases (principal); I65.23 Occlusion and stenosis of bilateral carotid arteries; I11.9 Hypertensive heart disease without heart failure
CPT/HCPCS: 93306; 93880

== ENCOUNTER 2019-11-03 16:05 | Emergency (ER) | payer MEDICARE ==
[~2019-11-03] VITALS: Ht 160 cm; Wt 63.0 kg
--- NOTE | 2019-11-03 17:11 | NUR ---
REPORT CHETAN FROM DEREK RODRIGUEZ AT NOW. Addendum: 11/03/19 at 1717 by AKILAH ABD PAU AT .
[2019-11-03] MEDS ORDERED: ONDANSETRON 2MG/ML, 2ML ONE (17:18)
[2019-11-03] MEDS ORDERED: FAMOTIDINE 20 MG/2 ML ONE (17:18)
[2019-11-03] MEDS ORDERED: FAMOTIDINE 20 MG/2 ML IVPush ONE (17:30)
[2019-11-03] MEDS ORDERED: ONDANSETRON 2MG/ML, 2ML IVPush ONE (17:30)
[2019-11-03] MEDS ORDERED: SODIUM CHLORIDE 0.9% 1,000ML IVBOLUS ONE (17:30)
[2019-11-03] MEDS ORDERED: SODIUM CHLORIDE FLUSH 10ML SYR IVF ONE (17:30)
--- NOTE | 2019-11-03 17:30 | NUR ---
PT MEDICATED PER ORDERS. TACHYPNEIC RR 28-30, REPORTS SOB BUT STATES, "I THINK IT'S JUST CAUSE I'M WEARING A MASK." SPO2 100% ON 2L NC (BASELINE HOME O2). RV'WD POC WITH PT.
[2019-11-03 17:37] LABS: MEAN CORPUSCULAR HEMOGLOBIN 22.3 pg (27.0-34.8); MEAN CORPUSCULAR VOLUME 74.1 fL (80-100); MEAN PLATELET VOLUME 8.1 fL (7.4-10.4); PLATELET COUNT 443 x10^3/uL (130-400); RED BLOOD COUNT 4.56 x10^6/uL (3.82-5.3); RED CELL DISTRIBUTION WIDTH 21.7 % (9.6-15.2)
[2019-11-03 17:40] LABS: ALBUMIN 3.5 g/dL (3.4-5.0); ANION GAP 8 mmol/L (5-15); CALCIUM 8.4 mg/dL (8.5-10.1); CHLORIDE 101 mmol/L (98-107)
[2019-11-03 17:44] LABS: ALANINE AMINOTRANSFERASE 26 U/L (12-78); ALKALINE PHOSPHATASE 103 U/L (45-117); BILIRUBIN,TOTAL 0.4 mg/dL (0.2-1.0); CREATININE 1.96 mg/dL (0.55-1.02); TOTAL PROTEIN 7.1 g/dL (6.4-8.2)
[2019-11-03 18:08] LABS: ANISOCYTOSIS 1+; BASOPHILS # (AUTO) 0.02 x10^3/uL (0-0.1); BASOPHILS % (AUTO) 0 % (0-1); EOSINOPHILS # (AUTO) 0.16 x10^3/uL (0-0.4); EOSINOPHILS % (AUTO) 1 % (1-7); LYMPHOCYTES # (AUTO) 0.54 x10^3/uL (1-3.4); LYMPHOCYTES % (AUTO) 4 % (22-44); MD MORPH REVIEW ONLY; MONOCYTES # (AUTO) 0.23 x10^3/uL (0.2-0.8); MONOCYTES % (AUTO) 2 % (2-9); NEUTROPHILS # (AUTO) 12.66 x10^3/uL (1.8-6.8); NEUTROPHILS % (AUTO) 93 % (42-75)
[2019-11-03 18:09] LABS: <PLATELET ESTIMATE> ADEQUATE; <PLT MORPHOLOGY> NORMAL PLT MORPH; HYPOCHROMIA 1+; MICROCYTOSIS 1+; POLYCHROMASIA 1+
--- NOTE | 2019-11-03 18:24 | NUR ---
PT STATES SHE FEELS BETTER AFTER MEDS AND FLUID BOLUS. BREATHING IMPROVED ALSO, RR 20 NOW.
--- NOTE | 2019-11-03 18:44 | NUR ---
ASSISTED PT TO BR VIA WC. INSTRUCTED ON CLEAN CATCH URINE SAMPLE.
[2019-11-03 18:57] LABS: MICROSCOPIC NOT IND
--- NOTE | 2019-11-03 19:15 | NUR ---
report of pt from kenn mayers and assumign care of pt at this time.
--- NOTE | 2019-11-03 20:06 | NUR ---
PT RESTING IN [facility] AT THIS TIME; [place]. VSS AND UPDATED IN EMR.
--- NOTE | 2019-11-03 20:55 | NUR ---
PT D/C WITH D/C SUMMARY AND SCRIPTS. ALL QUESTIONS ANSWERED. PIV D/C AT THIS TIME WITH TIP INTACT.; PT VSS AND UPDATED IN EMR. PT DENIES ANY OTHER NEEDS PERTAINING TO THIS VISIT AND AMBULATES TO REGISTRATION DESK WITH STEADY GAIT FOR D/C HOME WITH DAUGHTER.
[2019-11-03 20:58] VITALS: BP 127/60
== END 2019-11-03 21:05 | disposition home or self-care (01) ==
LOC: ED 19:10
DX: R11.2 Nausea with vomiting, unspecified (principal); R19.7 Diarrhea, unspecified; E86.0 Dehydration; R42 Dizziness and giddiness; I44.7 Left bundle-branch block, unspecified; J44.9 Chronic obstructive pulmonary disease, unspecified; I48.91 Unspecified atrial fibrillation; I50.9 Heart failure, unspecified; Z87.891 Personal history of nicotine dependence
CPT/HCPCS: 36415; 74021; 80053; 81003; 83690; 85025; 93005; 96361; 96374; 96375; 99285; J2405; J3490; J7030

== ENCOUNTER → 2019-11-10 | Outpatient (CLI) | payer MEDICARE ==
[2019-11-10 14:29] LABS: CHLORIDE 101 mmol/L (98-107)
[2019-11-10 14:36] LABS: ALANINE AMINOTRANSFERASE 35 U/L (12-78); ALBUMIN 3.4 g/dL (3.4-5.0); ALKALINE PHOSPHATASE 101 U/L (45-117); ANION GAP 7 mmol/L (5-15); BILIRUBIN,TOTAL 0.5 mg/dL (0.2-1.0); CHOL/HDL RATIO 2.4; CHOLESTEROL, TOTAL 159 mg/dL (140-239); HDL CHOL % 42 % (28-40); HDL CHOLESTEROL (DIRECT) 67 mg/dL (40-60); LDL CHOLESTEROL,CALCULATED 45 mg/dL (54-169); LDL/HDL RATIO 0.7 (0.5-3.0); TOTAL PROTEIN 6.6 g/dL (6.4-8.2); TRIGLYCERIDES 234 mg/dL (50-200); VLDL CHOLESTEROL 47 mg/dL (0-25)
== END | disposition home or self-care (01) ==
LOC: CFH 11:17
PROVIDERS: ATTEND Physician Assistant Medical
DX: I25.10 Atherosclerotic heart disease of native coronary artery without angina pectoris (principal); I35.9 Nonrheumatic aortic valve disorder, unspecified; I48.0 Paroxysmal atrial fibrillation; J44.9 Chronic obstructive pulmonary disease, unspecified; I12.9 Hypertensive chronic kidney disease with stage 1 through stage 4 chronic kidney disease, or unspecified chronic kidney disease; N18.9 Chronic kidney disease, unspecified
CPT/HCPCS: 36415; 80053; 80061

== ENCOUNTER 2019-12-28 13:10 | Inpatient (IN) | payer MEDICARE ==
[~2019-12-28] VITALS: Ht 160 cm; Wt 66.3 kg
--- NOTE | 2019-12-28 13:37 | NUR ---
PT REPORTS SOB AND FATIGUE X4 DAYS, RECENTLY HOSPITALIZED. REPORTS HX COPD AND CHF. ALL VITALS MONITORS IN PLACE, CALL LIGHT WITHIN REACH. PROVIDER AT BEDSIDE FOR EVAL.
[2019-12-28] MEDS ORDERED: SODIUM CHLORIDE FLUSH 10ML SYR IVF ONE (14:00)
[2019-12-28] MEDS ORDERED: FUROSEMIDE 40 MG/4 ML IV STA (14:06)
[2019-12-28 14:12] LABS: MEAN CORPUSCULAR HEMOGLOBIN 24.1 pg (27.0-34.8); MEAN PLATELET VOLUME 7.6 fL (7.4-10.4); PLATELET COUNT 443 x10^3/uL (130-400); RED BLOOD COUNT 4.13 x10^6/uL (3.82-5.3); RED CELL DISTRIBUTION WIDTH 23.6 % (9.6-15.2)
[2019-12-28 14:14] LABS: ALANINE AMINOTRANSFERASE 215 U/L (12-78); ALBUMIN 2.7 g/dL (3.4-5.0); ANION GAP 8 mmol/L (5-15); CALCIUM 8.3 mg/dL (8.5-10.1); CHLORIDE 104 mmol/L (98-107); CREATININE 1.54 mg/dL (0.55-1.02)
[2019-12-28 14:18] LABS: ALKALINE PHOSPHATASE 160 U/L (45-117); BILIRUBIN,TOTAL 0.4 mg/dL (0.2-1.0); TOTAL PROTEIN 6.1 g/dL (6.4-8.2); TROPONIN I 0.061 ng/mL (0.000-0.045)
[2019-12-28] MEDS ORDERED: ASPIRIN 81 MG TABLET CHEW PO ONE (14:30)
[2019-12-28] MEDS ORDERED: FUROSEMIDE 40 MG/4 ML ONE (14:34)
[2019-12-28] MEDS ORDERED: ASPIRIN 81 MG TABLET CHEW ONE (14:35)
[2019-12-28 14:39] LABS: BASOPHILS # (AUTO) 0.09 x10^3/uL (0-0.1); BASOPHILS % (AUTO) 1 % (0-1); EOSINOPHILS # (AUTO) 0.03 x10^3/uL (0-0.4); EOSINOPHILS % (AUTO) 0 % (1-7); LYMPHOCYTES # (AUTO) 0.63 x10^3/uL (1-3.4); LYMPHOCYTES % (AUTO) 4 % (22-44); MD MORPH REVIEW ONLY; MONOCYTES # (AUTO) 1.15 x10^3/uL (0.2-0.8); MONOCYTES % (AUTO) 8 % (2-9); NEUTROPHILS # (AUTO) 12.43 x10^3/uL (1.8-6.8); NEUTROPHILS % (AUTO) 87 % (42-75)
[2019-12-28 14:40] LABS: MEAN CORPUSCULAR HGB CONC 29.9 g/dL (32.4-35.8)
[2019-12-28 14:41] LABS: ANISOCYTOSIS 1+; HYPOCHROMIA 1+; POLYCHROMASIA 1+
[2019-12-28] MEDS ORDERED: CEFTRIAXONE PMX 1GM/50ML 50 ML ONE (14:41)
[2019-12-28 14:42] LABS: MICROCYTOSIS 1+; OVALOCYTES 1+
[2019-12-28 14:43] LABS: <PLATELET ESTIMATE> INCREASED; <PLT MORPHOLOGY> NORMAL PLT MORPH
--- NOTE | 2019-12-28 14:45 | NUR ---
MEDICATED PER MAR, ABX INFUSING AFTER BLOOD CX DRAWN, FALL PRECAUTIONS IN PLACE. CALL LIGHT WITHIN REACH.
[2019-12-28] MEDS ORDERED: CEFTRIAXONE PMX 1GM/50ML 50 ML IVPB ONE (15:00)
[2019-12-28] MEDS ORDERED: AZITHROMYCIN 500 MG in SODIUM CHLORIDE 0.9% 250 ML IVPB ONE (15:00)
--- NOTE | 2019-12-28 16:01 | NUR ---
PT TRANSPORTED TO CT.
--- NOTE | 2019-12-28 16:24 | NUR ---
PT BACK FROM CT, REPORTS INCREASE IN SOB, WILL UPDATE ERMD.
[2019-12-28] MEDS ORDERED: OMNIPAQUE 350 MG/ML, 100ML BOTTLE ONE (16:28)
--- NOTE | 2019-12-28 16:29 | NUR ---
DISCUSSED WITH DR. GUPTA PT'S CONTINUES TO BE SOB AND INCREASED RESPIRATIONS.
[2019-12-28] MEDS ORDERED: ALBUTEROL/IPRATROPIUM 2.5MG/0.5MG, 3 ML ONE ×2 (16:44→17:03)
--- NOTE | 2019-12-28 16:56 | NUR ---
SBAR RPT REC'D FROM BERNARDA RN PT MOVED TO ROOM 41. PT RR 45, AUDIBLE WHEEZING. NPPB TREATMENT STARTED, AND RT TO BEDSIDE. TRIAL BIPAP TO BE INITIATED.
[2019-12-28] MEDS ORDERED: ONDANSETRON 2MG/ML, 2ML IVPush PRN (17:00)
[2019-12-28] MEDS ORDERED: DOCUSATE 100 MG CAPSULE PO PRN (17:00)
[2019-12-28] MEDS ORDERED: GUAIFENESIN/DM 200-20MG, 10ML UDC PO PRN (17:00)
[2019-12-28] MEDS ORDERED: ENALAPRILAT 1.25 MG/ML, 2ML IVPush PRN (17:00)
[2019-12-28] MEDS ORDERED: TRAZODONE 50MG TABLET PO PRN (17:00)
[2019-12-28] MEDS ORDERED: ONDANSETRON ODT 4 MG PO PRN (17:00)
[2019-12-28] MEDS ORDERED: ACETAMINOPHEN 325 MG TABLET PO PRN (17:00)
[2019-12-28] MEDS ORDERED: ALBUTEROL SULFATE 2.5MG/0.5ML ONE (17:03)
[2019-12-28] MEDS ORDERED: MORPHINE SULFATE 4 MG/ML, 1ML ONE ×2 (17:11→17:54)
[2019-12-28] MEDS: morphine SULFATE 10 MG/ML, 1ML IVPush PRN (17:16)
[2019-12-28] MEDS ORDERED: methylPREDNISolone SOD SUCC 40 MG/ML ONE (17:56)
[2019-12-28] MEDS ORDERED: methylPREDNISolone SOD SUCC 40 MG/ML IV SCH (18:00)
--- NOTE | 2019-12-28 18:07 | NUR ---
TOTAL UOP AT THIS TIME 110ML, DR GUPTA INFORMED
[2019-12-28] MEDS ORDERED: NOREPINEPHRINE 8 MG in SODIUM CHLORIDE 0.9% 242 ML IV PRN (18:30)
[2019-12-28] MEDS ORDERED: MIDAZOLAM HCL 50 MG in SODIUM CHLORIDE 0.9% 40 ML IV PRN (18:30)
--- NOTE | 2019-12-28 19:22 | NUR ---
SBAR RPT TO RAPHAEL MASON. UPDATE TRANSFER RPT GIVEN TO RAPHAEL VICENTE ICU
[2019-12-28] MEDS ORDERED: VECURONIUM 10 MG IVPush ONE (19:30)
[2019-12-28] MEDS ORDERED: MIDAZOLAM 1 MG/ML, 2ML IVPush PRN ×2 (19:30)
[2019-12-28] MEDS ORDERED: SUCCINYLCHOLINE 20 MG/ML, 10ML IVPush ONE (19:30)
[2019-12-28] MEDS ORDERED: ETOMIDATE 20 MG/10 ML IVPush ONE (19:30)
[2019-12-28 19:40] VITALS: BP 120/78
[2019-12-28] MEDS ORDERED: GLUCAGON 1 MG IM PRN (20:00)
[2019-12-28] MEDS ORDERED: PHARMACY MAY ADJ FOR RENAL FX MC SCH (20:00)
[2019-12-28] MEDS ORDERED: DEXTROSE 50%, 50ML SYRINGE IVPush PRN (20:00)
[2019-12-28] MEDS ORDERED: FENTANYL PF 1,000 MCG in SODIUM CHLORIDE 0.9% 80 ML IV PRN (20:00)
[2019-12-28] MEDS ORDERED: DEXTROSE 4 GM TAB.CHEW PO PRN (20:00)
[2019-12-28] MEDS ORDERED: ONDANSETRON 2MG/ML, 2ML IV PRN (20:00)
[2019-12-28] MEDS ORDERED: LIDOCAINE-MPF 1%, 2ML ENDO PRN (20:00)
[2019-12-28] MEDS: SODIUM CHLORIDE FLUSH 10ML SYR IVF SCH (20:59)
[2019-12-28] MEDS: HEPARIN 5,000 UNITS/ML, 1ML SQ SCH (20:59)
[2019-12-28] MEDS ORDERED: FAMOTIDINE 20 MG/2 ML IVPush SCH (21:00)
[2019-12-28] MEDS ORDERED: ATORVASTATIN 40 MG TABLET PO SCH (21:00)
[2019-12-28] MEDS: PROPOFOL 100 ML IV PRN (21:01)
[2019-12-28] MEDS ORDERED: FUROSEMIDE 100 MG in SODIUM CHLORIDE 0.9% 50 ML IV ONE (21:30)
[2019-12-28 21:35] LABS: TRIGLYCERIDES 144 mg/dL (50-200)
[2019-12-28 21:39] LABS: TROPONIN I 0.066 ng/mL (0.000-0.045)
[2019-12-28] MEDS ORDERED: FUROSEMIDE 80 MG in SODIUM CHLORIDE 0.9% 50 ML IV SCH (22:00)
[2019-12-29] MEDS: HYDROcodone/APAP 5/325 TABLET PO PRN ×2 (00:03→04:36)
[2019-12-29 04:00] VITALS: BP 108/66
[2019-12-29] MEDS: HEPARIN 5,000 UNITS/ML, 1ML SQ SCH ×3 (04:14→19:20)
[2019-12-29] MEDS: PROPOFOL 100 ML IV PRN ×2 (04:35→15:00)
[2019-12-29 04:48] LABS: MEAN CORPUSCULAR HEMOGLOBIN 24.3 pg (27.0-34.8); MEAN CORPUSCULAR HGB CONC 30.1 g/dL (32.4-35.8); MEAN PLATELET VOLUME 7.8 fL (7.4-10.4); PLATELET COUNT 359 x10^3/uL (130-400); RED CELL DISTRIBUTION WIDTH 23.7 % (9.6-15.2)
[2019-12-29 04:50] LABS: ALBUMIN 2.4 g/dL (3.4-5.0); ANION GAP 8 mmol/L (5-15); CALCIUM 8.3 mg/dL (8.5-10.1); CHLORIDE 102 mmol/L (98-107)
[2019-12-29 04:53] LABS: ALANINE AMINOTRANSFERASE 195 U/L (12-78); ALKALINE PHOSPHATASE 135 U/L (45-117); BILIRUBIN,TOTAL 0.2 mg/dL (0.2-1.0); CREATININE 1.46 mg/dL (0.55-1.02); TOTAL PROTEIN 5.2 g/dL (6.4-8.2)
[2019-12-29] MEDS: LEVOTHYROXINE 50 MCG TABLET PO SCH (05:30)
[2019-12-29 05:46] LABS: BASOPHILS # (AUTO) 0.01 x10^3/uL (0-0.1); BASOPHILS % (AUTO) 0 % (0-1); EOSINOPHILS % (AUTO) 0 % (1-7); LYMPHOCYTES # (AUTO) 0.33 x10^3/uL (1-3.4); LYMPHOCYTES % (AUTO) 5 % (22-44); MD SCAN; MONOCYTES # (AUTO) 0.16 x10^3/uL (0.2-0.8); MONOCYTES % (AUTO) 2 % (2-9); NEUTROPHILS # (AUTO) 6.62 x10^3/uL (1.8-6.8); NEUTROPHILS % (AUTO) 93 % (42-75)
[2019-12-29] MEDS ORDERED: FUROSEMIDE 40 MG/4 ML IV SCH (07:30)
[2019-12-29] MEDS ORDERED: POTASSIUM CHLORIDE 20 MEQ TAB.ER.PRT PO SCH (08:00)
[2019-12-29] MEDS ORDERED: MIDAZOLAM 1 MG/ML, 5ML ONE (08:00)
[2019-12-29] MEDS ORDERED: VECURONIUM 10 MG ONE (08:00)
[2019-12-29] MEDS ORDERED: ETOMIDATE 20 MG/10 ML ONE (08:00)
[2019-12-29] MEDS ORDERED: SUCCINYLCHOLINE 20 MG/ML, 10ML ONE (08:00)
[2019-12-29] MEDS: PANTOPRAZOLE 40 MG IV IV SCH (08:11)
[2019-12-29] MEDS: SODIUM CHLORIDE FLUSH 10ML SYR IVF SCH ×2 (08:11→19:20)
[2019-12-29] MEDS: AMIODARONE 200 MG TABLET PO SCH (08:11)
[2019-12-29] MEDS ORDERED: SENNA/DOCUSATE TABLET PO SCH (09:00)
[2019-12-29] MEDS ORDERED: CEFTRIAXONE PMX 2GM/50ML 50 ML IV SCH (09:00)
[2019-12-29] MEDS ORDERED: TIOTROPIUM BROMIDE 18 MCG/INH INH SCH (09:00)
[2019-12-29] MEDS ORDERED: FUROSEMIDE 20 MG/2 ML IV SCH (10:00)
[2019-12-29] MEDS ORDERED: ALBUTEROL/IPRATROPIUM 2.5MG/0.5MG, 3 ML ONE (13:00)
[2019-12-29] MEDS: ALBUTEROL/IPRATROPIUM 2.5MG/0.5MG, 3 ML NPPB SCH ×3 (13:00→22:24)
[2019-12-29] MEDS: AZITHROMYCIN 500 MG in SODIUM CHLORIDE 0.9% 250 ML IV SCH (14:58)
[2019-12-29] MEDS: FUROSEMIDE 100 MG in SODIUM CHLORIDE 0.9% 90 ML IV SCH ×2 (15:41→16:19)
[2019-12-29] MEDS: FENTANYL PF 1,000 MCG in SODIUM CHLORIDE 0.9% 80 ML IV PRN (16:20)
[2019-12-30 04:00] VITALS: BP 109/66
[2019-12-30] MEDS: FENTANYL PF 1,000 MCG in SODIUM CHLORIDE 0.9% 80 ML IV PRN ×2 (04:36→15:45)
[2019-12-30] MEDS: HEPARIN 5,000 UNITS/ML, 1ML SQ SCH ×3 (04:37→19:37)
[2019-12-30 05:34] LABS: MEAN CORPUSCULAR HEMOGLOBIN 24.5 pg (27.0-34.8); MEAN CORPUSCULAR HGB CONC 30.3 g/dL (32.4-35.8); MEAN PLATELET VOLUME 7.7 fL (7.4-10.4); PLATELET COUNT 462 x10^3/uL (130-400); RED BLOOD COUNT 3.76 x10^6/uL (3.82-5.3); RED CELL DISTRIBUTION WIDTH 23.7 % (9.6-15.2)
[2019-12-30] MEDS: LEVOTHYROXINE 50 MCG TABLET PO SCH (06:17)
[2019-12-30] MEDS: PROPOFOL 100 ML IV PRN ×2 (06:18→18:04)
[2019-12-30 06:23] LABS: BASOPHILS # (AUTO) 0.06 x10^3/uL (0-0.1); BASOPHILS % (AUTO) 0 % (0-1); EOSINOPHILS # (AUTO) 0.03 x10^3/uL (0-0.4); EOSINOPHILS % (AUTO) 0 % (1-7); LYMPHOCYTES # (AUTO) 1.64 x10^3/uL (1-3.4); LYMPHOCYTES % (AUTO) 11 % (22-44); MD SCAN; MONOCYTES # (AUTO) 1.53 x10^3/uL (0.2-0.8); MONOCYTES % (AUTO) 10 % (2-9); NEUTROPHILS # (AUTO) 11.89 x10^3/uL (1.8-6.8); NEUTROPHILS % (AUTO) 79 % (42-75)
[2019-12-30] MEDS: ALBUTEROL/IPRATROPIUM 2.5MG/0.5MG, 3 ML NPPB SCH ×3 (07:02→21:00)
[2019-12-30] MEDS: AMIODARONE 200 MG TABLET PO SCH (08:56)
[2019-12-30] MEDS: PANTOPRAZOLE 40 MG IV IV SCH (08:56)
[2019-12-30] MEDS: SODIUM CHLORIDE FLUSH 10ML SYR IVF SCH ×2 (08:59→19:37)
[2019-12-30] MEDS ORDERED: METOLAZONE 5 MG TABLET PO ONE (11:00)
[2019-12-30] MEDS ORDERED: FUROSEMIDE 100 MG in SODIUM CHLORIDE 0.9% 50 ML IV ONE (11:00)
[2019-12-30 11:54] LABS: FREE T4 (FREE THYROXINE) 1.76 ng/dL (0.76-1.46)
[2019-12-30] MEDS: AZITHROMYCIN 500 MG in SODIUM CHLORIDE 0.9% 250 ML IV SCH (15:36)
[2019-12-30] MEDS ORDERED: NOREPINEPHRINE 8 MG in SODIUM CHLORIDE 0.9% 242 ML IV PRN (17:00)
[2019-12-31] MEDS: PROPOFOL 100 ML IV PRN ×4 (01:54→22:56)
[2019-12-31] MEDS: ALBUTEROL/IPRATROPIUM 2.5MG/0.5MG, 3 ML NPPB SCH ×4 (02:22→20:18)
[2019-12-31 03:58] LABS: MEAN CORPUSCULAR HEMOGLOBIN 24.6 pg (27.0-34.8); MEAN CORPUSCULAR HGB CONC 30.8 g/dL (32.4-35.8); MEAN PLATELET VOLUME 7.2 fL (7.4-10.4); PLATELET COUNT 445 x10^3/uL (130-400); RED BLOOD COUNT 3.22 x10^6/uL (3.82-5.3)
[2019-12-31 04:00] VITALS: BP 92/55
[2019-12-31 04:18] LABS: BASOPHILS # (AUTO) 0.03 x10^3/uL (0-0.1); BASOPHILS % (AUTO) 0 % (0-1); EOSINOPHILS # (AUTO) 0.04 x10^3/uL (0-0.4); EOSINOPHILS % (AUTO) 0 % (1-7); LYMPHOCYTES % (AUTO) 10 % (22-44); MD MORPH REVIEW ONLY; MONOCYTES # (AUTO) 0.85 x10^3/uL (0.2-0.8); MONOCYTES % (AUTO) 7 % (2-9); NEUTROPHILS % (AUTO) 82 % (42-75)
[2019-12-31 04:19] LABS: ANISOCYTOSIS 2+
[2019-12-31 04:20] LABS: HYPOCHROMIA 1+; MICROCYTOSIS 2+; OVALOCYTES 1+; POLYCHROMASIA 1+
[2019-12-31 04:21] LABS: <PLATELET ESTIMATE> INCREASED
[2019-12-31 04:22] LABS: SMALL PLATELETS 1+
[2019-12-31] MEDS: LEVOTHYROXINE 50 MCG TABLET PO SCH (04:48)
[2019-12-31] MEDS: HEPARIN 5,000 UNITS/ML, 1ML SQ SCH ×3 (04:48→20:31)
[2019-12-31 05:00] LABS: ALANINE AMINOTRANSFERASE 184 U/L (12-78); ALBUMIN 2.3 g/dL (3.4-5.0); ANION GAP 10 mmol/L (5-15); CALCIUM 7.7 mg/dL (8.5-10.1); CHLORIDE 102 mmol/L (98-107); CREATININE 2.21 mg/dL (0.55-1.02)
[2019-12-31 05:02] LABS: ALKALINE PHOSPHATASE 134 U/L (45-117); BILIRUBIN,TOTAL 0.3 mg/dL (0.2-1.0); TOTAL PROTEIN 5.1 g/dL (6.4-8.2)
[2019-12-31] MEDS ORDERED: POTASSIUM CHLORIDE 10% 20 MEQ/15 ML UDC PO ONE (07:00)
[2019-12-31] MEDS: FENTANYL PF 1,000 MCG in SODIUM CHLORIDE 0.9% 80 ML IV PRN (07:55)
[2019-12-31] MEDS: SODIUM CHLORIDE FLUSH 10ML SYR IVF SCH ×2 (09:07→20:31)
[2019-12-31] MEDS: PANTOPRAZOLE 40 MG IV IV SCH (09:07)
[2019-12-31] MEDS: AMIODARONE 200 MG TABLET PO SCH (09:07)
[2019-12-31] MEDS: RISPERIDONE 0.5 MG TABLET PO SCH ×2 (10:23→20:30)
[2019-12-31] MEDS ORDERED: AZITHROMYCIN 500 MG in SODIUM CHLORIDE 0.9% 250 ML IV SCH (15:00)
[2020-01-01] MEDS: ALBUTEROL/IPRATROPIUM 2.5MG/0.5MG, 3 ML NPPB SCH ×4 (02:04→20:00)
[2020-01-01] MEDS: HEPARIN 5,000 UNITS/ML, 1ML SQ SCH ×3 (03:56→21:42)
[2020-01-01 04:20] LABS: MEAN CORPUSCULAR HEMOGLOBIN 24.3 pg (27.0-34.8); MEAN CORPUSCULAR HGB CONC 30.4 g/dL (32.4-35.8); MEAN PLATELET VOLUME 7.4 fL (7.4-10.4); PLATELET COUNT 391 x10^3/uL (130-400); RED BLOOD COUNT 3.09 x10^6/uL (3.82-5.3); RED CELL DISTRIBUTION WIDTH 22.3 % (9.6-15.2)
[2020-01-01 04:25] LABS: ALBUMIN 2.1 g/dL (3.4-5.0)
[2020-01-01 04:28] LABS: BILIRUBIN, DIRECT 0.1 mg/dL (0.1-0.2); BILIRUBIN,INDIRECT 0.2 mg/dL (0.0-2.0); BILIRUBIN,TOTAL 0.3 mg/dL (0.2-1.0)
[2020-01-01 04:36] VITALS: BP 105/51
[2020-01-01] MEDS: LEVOTHYROXINE 50 MCG TABLET PO SCH (05:07)
[2020-01-01 05:18] LABS: ANION GAP 8 mmol/L (5-15); CALCIUM 8.1 mg/dL (8.5-10.1); CHLORIDE 101 mmol/L (98-107); CREATININE 1.54 mg/dL (0.55-1.02)
[2020-01-01 06:00] LABS: BASOPHILS # (AUTO) 0.04 x10^3/uL (0-0.1); BASOPHILS % (AUTO) 0 % (0-1); EOSINOPHILS % (AUTO) 0 % (1-7); LYMPHOCYTES % (AUTO) 10 % (22-44); MD SCAN; MONOCYTES # (AUTO) 0.75 x10^3/uL (0.2-0.8); MONOCYTES % (AUTO) 7 % (2-9); NEUTROPHILS % (AUTO) 82 % (42-75)
[2020-01-01] MEDS ORDERED: POTASSIUM CHLORIDE 10% 40 MEQ/30 ML UDC ONE (06:46)
[2020-01-01] MEDS ORDERED: POTASSIUM CHLORIDE 10% 40 MEQ/30 ML UDC PO ONE (07:00)
[2020-01-01] MEDS: PANTOPRAZOLE 40 MG IV IV SCH (08:26)
[2020-01-01] MEDS: AMIODARONE 200 MG TABLET PO SCH (08:26)
[2020-01-01] MEDS: RISPERIDONE 0.5 MG TABLET PO SCH ×2 (08:26→21:42)
[2020-01-01] MEDS: SODIUM CHLORIDE FLUSH 10ML SYR IVF SCH ×2 (08:27→21:42)
[2020-01-01] MEDS: SENNA/DOCUSATE TABLET NG PRN (10:34)
[2020-01-01] MEDS: MIDODRINE 5 MG TABLET PO SCH ×3 (11:41→21:42)
[2020-01-01] MEDS ORDERED: POTASSIUM CHLORIDE 20 MEQ TAB.ER.PRT PO ONE (15:30)
[2020-01-01] MEDS ORDERED: FUROSEMIDE 40 MG/4 ML IV ONE (15:30)
[2020-01-01] MEDS ORDERED: DOCUSATE 50 MG/5 ML ORAL SOL PO PRN (21:30)
[2020-01-02] MEDS: ALBUTEROL/IPRATROPIUM 2.5MG/0.5MG, 3 ML NPPB SCH ×4 (02:18→20:18)
[2020-01-02 04:00] VITALS: BP 100/47
[2020-01-02 05:01] LABS: ANION GAP 5 mmol/L (5-15); CALCIUM 8.2 mg/dL (8.5-10.1); CHLORIDE 101 mmol/L (98-107); CREATININE 1.46 mg/dL (0.55-1.02)
[2020-01-02 05:31] LABS: MEAN PLATELET VOLUME 7.7 fL (7.4-10.4); PLATELET COUNT 361 x10^3/uL (130-400); RED BLOOD COUNT 3.16 x10^6/uL (3.82-5.3); RED CELL DISTRIBUTION WIDTH 22.5 % (9.6-15.2)
[2020-01-02 06:07] LABS: BASOPHILS # (AUTO) 0.03 x10^3/uL (0-0.1); BASOPHILS % (AUTO) 0 % (0-1); EOSINOPHILS % (AUTO) 0 % (1-7); LYMPHOCYTES # (AUTO) 0.92 x10^3/uL (1-3.4); LYMPHOCYTES % (AUTO) 8 % (22-44); MD SCAN; MONOCYTES # (AUTO) 0.95 x10^3/uL (0.2-0.8); MONOCYTES % (AUTO) 8 % (2-9); NEUTROPHILS # (AUTO) 9.99 x10^3/uL (1.8-6.8); NEUTROPHILS % (AUTO) 84 % (42-75)
[2020-01-02] MEDS: HEPARIN 5,000 UNITS/ML, 1ML SQ SCH ×3 (06:21→19:41)
[2020-01-02] MEDS: LEVOTHYROXINE 50 MCG TABLET PO SCH (06:21)
[2020-01-02] MEDS ORDERED: COSYNTROPIN 0.25 MG IVPush ONE (09:30)
[2020-01-02] MEDS: RISPERIDONE 0.5 MG TABLET PO SCH ×2 (10:22→19:41)
[2020-01-02] MEDS: SODIUM CHLORIDE FLUSH 10ML SYR IVF SCH ×2 (10:22→19:42)
[2020-01-02] MEDS: MIDODRINE 5 MG TABLET PO SCH ×3 (10:22→19:41)
[2020-01-02] MEDS: PANTOPRAZOLE 40 MG IV IV SCH (10:22)
[2020-01-02] MEDS: AMIODARONE 200 MG TABLET PO SCH (10:23)
[2020-01-02] MEDS ORDERED: FUROSEMIDE 40 MG/4 ML IV ONE (14:00)
[2020-01-02] MEDS ORDERED: FENTANYL PF 100 MCG/2ML IVPush PRN (14:00)
[2020-01-02] MEDS: SENNA/DOCUSATE TABLET NG PRN (19:41)
[2020-01-03] MEDS: ALBUTEROL/IPRATROPIUM 2.5MG/0.5MG, 3 ML NPPB SCH ×4 (03:10→21:00)
[2020-01-03 04:00] VITALS: BP 94/55
[2020-01-03] MEDS: HEPARIN 5,000 UNITS/ML, 1ML SQ SCH ×3 (04:13→21:41)
[2020-01-03 04:35] LABS: ANION GAP 2 mmol/L (5-15); CALCIUM 8.3 mg/dL (8.5-10.1); CHLORIDE 99 mmol/L (98-107); CREATININE 1.31 mg/dL (0.55-1.02); MEAN CORPUSCULAR HGB CONC 30.1 g/dL (32.4-35.8); MEAN PLATELET VOLUME 7.7 fL (7.4-10.4); PLATELET COUNT 382 x10^3/uL (130-400); RED BLOOD COUNT 3.03 x10^6/uL (3.82-5.3); RED CELL DISTRIBUTION WIDTH 22.8 % (9.6-15.2); TRIGLYCERIDES 158 mg/dL (50-200)
[2020-01-03 05:05] LABS: BASOPHILS # (AUTO) 0.07 x10^3/uL (0-0.1); BASOPHILS % (AUTO) 1 % (0-1); EOSINOPHILS % (AUTO) 0 % (1-7); LYMPHOCYTES # (AUTO) 1.19 x10^3/uL (1-3.4); LYMPHOCYTES % (AUTO) 10 % (22-44); MD SCAN; MONOCYTES # (AUTO) 1.21 x10^3/uL (0.2-0.8); MONOCYTES % (AUTO) 10 % (2-9); NEUTROPHILS # (AUTO) 9.95 x10^3/uL (1.8-6.8); NEUTROPHILS % (AUTO) 80 % (42-75)
[2020-01-03] MEDS: LEVOTHYROXINE 50 MCG TABLET PO SCH (06:06)
[2020-01-03] MEDS ORDERED: POTASSIUM CHLORIDE 10% 20 MEQ/15 ML UDC PO ONE (06:30)
[2020-01-03] MEDS: RISPERIDONE 0.5 MG TABLET PO SCH (09:00)
[2020-01-03] MEDS ORDERED: METHYLNALTREXONE 12 MG/0.6 ML SYR SQ ONE (09:00)
[2020-01-03] MEDS: PANTOPRAZOLE 40 MG IV IV SCH (09:04)
[2020-01-03] MEDS: SODIUM CHLORIDE FLUSH 10ML SYR IVF SCH ×2 (09:04→21:48)
[2020-01-03] MEDS: MIDODRINE 5 MG TABLET PO SCH ×3 (09:04→21:42)
[2020-01-03] MEDS: AMIODARONE 200 MG TABLET PO SCH (09:04)
[2020-01-03 09:07] LABS: FIO2 35 %
[2020-01-04] VITALS (7 sets, daily range): BP systolic 91–124; BP diastolic 48–63
[2020-01-04] MEDS: ALBUTEROL/IPRATROPIUM 2.5MG/0.5MG, 3 ML NPPB SCH ×4 (03:00→19:14)
[2020-01-04 05:01] LABS: CHLORIDE 100 mmol/L (98-107)
[2020-01-04 05:08] LABS: ANION GAP 5 mmol/L (5-15); CALCIUM 8.2 mg/dL (8.5-10.1); CREATININE 1.17 mg/dL (0.55-1.02)
[2020-01-04 05:34] LABS: MEAN CORPUSCULAR HEMOGLOBIN 23.7 pg (27.0-34.8); PLATELET COUNT 381 x10^3/uL (130-400); RED BLOOD COUNT 2.89 x10^6/uL (3.82-5.3); RED CELL DISTRIBUTION WIDTH 22.3 % (9.6-15.2)
[2020-01-04 05:37] LABS: MEAN CORPUSCULAR HGB CONC 29.8 g/dL (32.4-35.8)
[2020-01-04 06:01] LABS: BASOPHILS # (AUTO) 0.05 x10^3/uL (0-0.1); BASOPHILS % (AUTO) 0 % (0-1); EOSINOPHILS % (AUTO) 0 % (1-7); LYMPHOCYTES # (AUTO) 0.84 x10^3/uL (1-3.4); LYMPHOCYTES % (AUTO) 6 % (22-44); MD SCAN; MONOCYTES # (AUTO) 1.36 x10^3/uL (0.2-0.8); MONOCYTES % (AUTO) 10 % (2-9); NEUTROPHILS # (AUTO) 11.83 x10^3/uL (1.8-6.8); NEUTROPHILS % (AUTO) 84 % (42-75)
[2020-01-04] MEDS: HEPARIN 5,000 UNITS/ML, 1ML SQ SCH ×3 (06:17→23:30)
[2020-01-04] MEDS: LEVOTHYROXINE 50 MCG TABLET PO SCH (06:17)
[2020-01-04] MEDS: MEROPENEM 500 MG in SODIUM CHLORIDE 0.9% 100 ML IV SCH ×3 (08:44→23:33)
[2020-01-04] MEDS: DEXMEDETOMIDINE 400 MCG in SODIUM CHLORIDE 0.9% 96 ML IV PRN ×2 (09:22→23:33)
[2020-01-04] MEDS: LACTULOSE 20 GM/30 ML UDC PO SCH ×2 (09:22→20:43)
[2020-01-04] MEDS: PANTOPRAZOLE 40 MG IV IV SCH (09:22)
[2020-01-04] MEDS: AMIODARONE 200 MG TABLET PO SCH (09:23)
[2020-01-04] MEDS: MIDODRINE 5 MG TABLET PO SCH ×3 (09:23→20:44)
[2020-01-04] MEDS: SODIUM CHLORIDE FLUSH 10ML SYR IVF SCH ×2 (09:24→20:43)
[2020-01-04] MEDS ORDERED: VANCOMYCIN PER PHARMACY MC PRN (11:00)
[2020-01-04] MEDS ORDERED: PHARMACOKINETIC MONITORING MC PRN (11:30)
[2020-01-04] MEDS ORDERED: VANCOMYCIN 1,300 MG in SODIUM CHLORIDE 0.9% 250 ML IV SCH (12:00)
[2020-01-05] MEDS: ALBUTEROL/IPRATROPIUM 2.5MG/0.5MG, 3 ML NPPB SCH ×4 (02:37→22:30)
[2020-01-05 04:00] VITALS: BP 92/48
[2020-01-05] MEDS: LEVOTHYROXINE 50 MCG TABLET PO SCH (04:39)
[2020-01-05 05:10] LABS: BASOPHILS # (AUTO) 0.01 x10^3/uL (0-0.1); BASOPHILS % (AUTO) 0 % (0-1); EOSINOPHILS % (AUTO) 0 % (1-7); LYMPHOCYTES # (AUTO) 0.83 x10^3/uL (1-3.4); LYMPHOCYTES % (AUTO) 7 % (22-44); MD NO; MEAN CORPUSCULAR HEMOGLOBIN 24.7 pg (27.0-34.8); MEAN CORPUSCULAR HGB CONC 30.3 g/dL (32.4-35.8); MEAN PLATELET VOLUME 7.8 fL (7.4-10.4); MONOCYTES # (AUTO) 1.21 x10^3/uL (0.2-0.8); MONOCYTES % (AUTO) 10 % (2-9); NEUTROPHILS # (AUTO) 10.23 x10^3/uL (1.8-6.8); NEUTROPHILS % (AUTO) 83 % (42-75); PLATELET COUNT 382 x10^3/uL (130-400); RED BLOOD COUNT 3.38 x10^6/uL (3.82-5.3); RED CELL DISTRIBUTION WIDTH 20.9 % (9.6-15.2)
[2020-01-05 05:15] LABS: ANION GAP 3 mmol/L (5-15); CALCIUM 8.4 mg/dL (8.5-10.1); CHLORIDE 103 mmol/L (98-107); CREATININE 1.12 mg/dL (0.55-1.02)
[2020-01-05] MEDS: MEROPENEM 500 MG in SODIUM CHLORIDE 0.9% 100 ML IV SCH (08:49)
[2020-01-05] MEDS ORDERED: LACTULOSE 20 GM/30 ML UDC PO PRN (09:00)
[2020-01-05] MEDS: HEPARIN 5,000 UNITS/ML, 1ML SQ SCH ×2 (10:13→17:52)
[2020-01-05] MEDS: PANTOPRAZOLE 40 MG IV IV SCH (10:13)
[2020-01-05] MEDS: MIDODRINE 5 MG TABLET PO SCH ×3 (10:14→21:41)
[2020-01-05] MEDS: SODIUM CHLORIDE FLUSH 10ML SYR IVF SCH ×2 (10:14→21:41)
[2020-01-05] MEDS: AMIODARONE 200 MG TABLET PO SCH (10:14)
[2020-01-05] MEDS: VANCOMYCIN 1,300 MG in SODIUM CHLORIDE 0.9% 250 ML IV SCH (13:05)
[2020-01-05] MEDS: DEXMEDETOMIDINE 400 MCG in SODIUM CHLORIDE 0.9% 96 ML IV PRN (15:31)
[2020-01-06] MEDS: HEPARIN 5,000 UNITS/ML, 1ML SQ SCH ×3 (01:13→16:33)
[2020-01-06] MEDS: morphine SULFATE 10 MG/ML, 1ML IVPush PRN ×2 (01:14→08:50)
[2020-01-06] MEDS: ALBUTEROL/IPRATROPIUM 2.5MG/0.5MG, 3 ML NPPB SCH ×4 (02:06→18:46)
[2020-01-06 04:00] VITALS: BP 101/41
[2020-01-06 04:21] LABS: BASOPHILS # (AUTO) 0.02 x10^3/uL (0-0.1); BASOPHILS % (AUTO) 0 % (0-1); EOSINOPHILS % (AUTO) 0 % (1-7); LYMPHOCYTES # (AUTO) 0.85 x10^3/uL (1-3.4); LYMPHOCYTES % (AUTO) 7 % (22-44); MD NO; MEAN CORPUSCULAR HEMOGLOBIN 25.2 pg (27.0-34.8); MEAN CORPUSCULAR HGB CONC 30.9 g/dL (32.4-35.8); MEAN PLATELET VOLUME 7.8 fL (7.4-10.4); MONOCYTES # (AUTO) 1.09 x10^3/uL (0.2-0.8); MONOCYTES % (AUTO) 9 % (2-9); NEUTROPHILS # (AUTO) 9.95 x10^3/uL (1.8-6.8); NEUTROPHILS % (AUTO) 84 % (42-75); PLATELET COUNT 416 x10^3/uL (130-400); RED BLOOD COUNT 3.43 x10^6/uL (3.82-5.3); RED CELL DISTRIBUTION WIDTH 21.5 % (9.6-15.2)
[2020-01-06 04:32] LABS: ANION GAP 4 mmol/L (5-15); CALCIUM 7.9 mg/dL (8.5-10.1); CHLORIDE 103 mmol/L (98-107); TRIGLYCERIDES 169 mg/dL (50-200)
[2020-01-06] MEDS: LEVOTHYROXINE 50 MCG TABLET PO SCH (04:46)
[2020-01-06] MEDS: DEXMEDETOMIDINE 400 MCG in SODIUM CHLORIDE 0.9% 96 ML IV PRN ×2 (04:47→21:15)
[2020-01-06] MEDS: AMIODARONE 200 MG TABLET PO SCH (08:21)
[2020-01-06] MEDS: PANTOPRAZOLE 40 MG IV IV SCH (08:21)
[2020-01-06] MEDS: MIDODRINE 5 MG TABLET PO SCH ×3 (08:21→21:12)
[2020-01-06] MEDS: SODIUM CHLORIDE FLUSH 10ML SYR IVF SCH ×2 (08:21→21:13)
[2020-01-06] MEDS ORDERED: FUROSEMIDE 40 MG/4 ML IV ONE (09:00)
[2020-01-07] MEDS: HEPARIN 5,000 UNITS/ML, 1ML SQ SCH ×2 (00:31→08:56)
[2020-01-07] MEDS: VANCOMYCIN 1,300 MG in SODIUM CHLORIDE 0.9% 250 ML IV SCH (00:31)
[2020-01-07] MEDS: ALBUTEROL/IPRATROPIUM 2.5MG/0.5MG, 3 ML NPPB SCH ×2 (02:32→06:39)
[2020-01-07] MEDS: DEXMEDETOMIDINE 400 MCG in SODIUM CHLORIDE 0.9% 96 ML IV PRN ×2 (03:58→09:32)
[2020-01-07 04:00] VITALS: BP 110/52
[2020-01-07 04:35] LABS: BASOPHILS # (AUTO) 0.02 x10^3/uL (0-0.1); BASOPHILS % (AUTO) 0 % (0-1); EOSINOPHILS # (AUTO) 0.26 x10^3/uL (0-0.4); EOSINOPHILS % (AUTO) 2 % (1-7); LYMPHOCYTES # (AUTO) 1.03 x10^3/uL (1-3.4); LYMPHOCYTES % (AUTO) 9 % (22-44); MD NO; MEAN CORPUSCULAR HEMOGLOBIN 25.3 pg (27.0-34.8); MEAN CORPUSCULAR HGB CONC 31.1 g/dL (32.4-35.8); MEAN PLATELET VOLUME 7.9 fL (7.4-10.4); MONOCYTES # (AUTO) 1.03 x10^3/uL (0.2-0.8); MONOCYTES % (AUTO) 9 % (2-9); NEUTROPHILS # (AUTO) 9.04 x10^3/uL (1.8-6.8); NEUTROPHILS % (AUTO) 79 % (42-75); PLATELET COUNT 421 x10^3/uL (130-400); RED BLOOD COUNT 3.37 x10^6/uL (3.82-5.3); RED CELL DISTRIBUTION WIDTH 20.9 % (9.6-15.2)
[2020-01-07 04:51] LABS: ANION GAP 4 mmol/L (5-15); CHLORIDE 103 mmol/L (98-107); CREATININE 1.07 mg/dL (0.55-1.02)
[2020-01-07] MEDS: MIDODRINE 5 MG TABLET PO SCH ×2 (05:25→10:58)
[2020-01-07] MEDS: LEVOTHYROXINE 50 MCG TABLET PO SCH (05:25)
[2020-01-07] MEDS: AMIODARONE 200 MG TABLET PO SCH (08:54)
[2020-01-07] MEDS: PANTOPRAZOLE 40 MG IV IV SCH (08:54)
[2020-01-07] MEDS: SODIUM CHLORIDE FLUSH 10ML SYR IVF SCH (08:56)
[2020-01-07] MEDS ORDERED: ALBUMIN HUMAN 25% 100 ML IV ONE (09:00)
[2020-01-07] MEDS ORDERED: FUROSEMIDE 40 MG/4 ML IV ONE (10:30)
[2020-01-07] MEDS ORDERED: LORazepam 2 MG/ML, 1ML IVPush PRN (12:00)
[2020-01-07] MEDS ORDERED: ONDANSETRON 2MG/ML, 2ML IVPush PRN (12:00)
[2020-01-07] MEDS ORDERED: MORPHINE SULFATE 4 MG/ML, 1ML IV ONE (12:00)
[2020-01-07] MEDS ORDERED: LORazepam 2 MG/ML, 1ML IV ONE (12:00)
[2020-01-07] MEDS ORDERED: ATROPINE OPHTH SOLN 1%, 5ML PO PRN (12:00)
[2020-01-07] MEDS: MORPHINE SULFATE 4 MG/ML, 1ML IVPush PRN ×2 (13:17→13:24)
== END 2020-01-07 13:57 | disposition expired | DRG 207 ==
LOC: ED 15:04 → EDIP 15:22 → ICU 19:40 → CCU 12-29 18:16
PROVIDERS: ADMIT Family Medicine; ATTEND Hospitalist
PROC: 5A09357 Assistance with Respiratory Ventilation, Less than 24 Consecutive Hours, Continuous Positive Airway Pressure (ICD-10-PCS; principal; 2019-12-28)
PROC: 5A1955Z Respiratory Ventilation, Greater than 96 Consecutive Hours (ICD-10-PCS; 2019-12-28)
PROC: 0BH18EZ Insertion of Endotracheal Airway into Trachea, Via Natural or Artificial Opening Endoscopic (ICD-10-PCS; 2019-12-28)
PROC: 02HV33Z Insertion of Infusion Device into Superior Vena Cava, Percutaneous Approach (ICD-10-PCS; 2019-12-28)
PROC: 30233P1 Transfusion of Nonautologous Frozen Red Cells into Peripheral Vein, Percutaneous Approach (ICD-10-PCS; 2020-01-04)
DX: J15.212 Pneumonia due to Methicillin resistant Staphylococcus aureus (principal); J96.21 Acute and chronic respiratory failure with hypoxia; I50.33 Acute on chronic diastolic (congestive) heart failure; I13.0 Hypertensive heart and chronic kidney disease with heart failure and stage 1 through stage 4 chronic kidney disease, or unspecified chronic kidney disease; J44.0 Chronic obstructive pulmonary disease with (acute) lower respiratory infection; J44.1 Chronic obstructive pulmonary disease with (acute) exacerbation; J98.11 Atelectasis; N17.9 Acute kidney failure, unspecified; Q21.1 Atrial septal defect; N18.3 Chronic kidney disease, stage 3 (moderate); D17.1 Benign lipomatous neoplasm of skin and subcutaneous tissue of trunk; D64.9 Anemia, unspecified; E03.9 Hypothyroidism, unspecified; E78.5 Hyperlipidemia, unspecified; E87.6 Hypokalemia; F41.9 Anxiety disorder, unspecified; I35.2 Nonrheumatic aortic (valve) stenosis with insufficiency; I48.0 Paroxysmal atrial fibrillation; K21.9 Gastro-esophageal reflux disease without esophagitis; K76.1 Chronic passive congestion of liver; R57.0 Cardiogenic shock; Z20.828 Contact with and (suspected) exposure to other viral communicable diseases; Z51.5 Encounter for palliative care; Z66 Do not resuscitate; Z72.0 Tobacco use; Z79.899 Other long term (current) drug therapy; Z80.9 Family history of malignant neoplasm, unspecified; Z82.49 Family history of ischemic heart disease and other diseases of the circulatory system; Z83.3 Family history of diabetes mellitus; Z90.710 Acquired absence of both cervix and uterus; Z95.2 Presence of prosthetic heart valve; Y95 Nosocomial condition
CPT/HCPCS: 31500; 36415; 36556; 36600; 71045; 71275; 80048; 80053; 80074; 80076; 82533; 82803; 83605; 83735; 83880; 84100; 84145; 84439; 84443; 84478; 84484; 85014; 85018; 85025; 85379; 86850; 86900; 86923; 87040; 87070; 87077; 87081; 87186; 87205; 87635; 87806; 93005; 94002; 94003; 94640; 94660; 96365; 96366; 96375; 99291; G0378; J0456; J0696; J1644; J1940; J2185; J2250; J2704; J3010; J3370; P9047; Q9967; C9113; G0475; J0330; J0834; J2060; J2270; J2920; J7050; P9016; Q0177